=== PATIENT | male | born 1995 | race Caucasian/White ===

== ENCOUNTER 2016-11-11 09:07 | Emergency (ER) | payer BC ==
[~2016-11-11 09:07] MED LIST: MINO100C22 PO
[2016-11-11 09:13] VITALS: TEMP 37
[2016-11-11 09:26] VITALS: O2SAT 96
[2016-11-11] MEDS ORDERED: SODIUM CHLORIDE 0.9% 1000ML 1,000 ML IV STA ×2 (09:32)
--- NOTE | 2016-11-11 10:00 | EMERGENCY ROOM VISIT NOTE ---
History Report prepared by José: Deepali Victoria Under the Supervision of: Dr. Sherri Hector M.D. First contact with patient: 09:18 Chief Complaint: OVERDOSE (INTENTIONAL) Stated Complaint: OVERDOSE-VICODIN, ALCOHOL, COCAINE, XANAX History of Present Illness The patient is a 20 year old male who presents to the Emergency Room with complaints of an episode of a drug overdose occurring [employer]. Per father, the patient was found this morning by a "good worship." He was sleeping in his car on the side of the road. The patient was brought to the ED for further evaluation. He admits to using cocaine and alcohol last night. It is unclear if he also used Xanax and LSD. The patient mentioned these drugs, but his father thinks that he is just talking about previous drugs he has used and not what he was doing last night. Father states that the patient likely smoked marijuana last night as well. The patient has been taking Suboxone for the past 3 weeks since he was discharged from [facility] in [place]. Father states that the patient wanted to take the Suboxone because he wanted to have consequences for his actions. The patient states that he has not had anything to eat or drink recently and feels dehydrated. He denies any injury or trauma, but he is complaining of back pain. The history is limited due to the patient's AMS. Source of History: patient, parent (father) History Limited By: AMS Onset: TENNIS [employer]ER Position: other (global) Quality: other (overdose) Timing: other (episode) Associated Symptoms: + back pain Review of Systems See HPI for pertinent positives & negatives. A total of 10 systems reviewed and were otherwise negative. Past Medical & Surgical Medical Problems: (1) Depression (2) Polysubstance abuse Family History Diabetes mellitus FH: heart disease FH: lung disease FH: seizures FHx: gallbladder disease Hypertension Social History Smoking Status: Unknown if Ever Smoked Alcohol Use: occasionally Drug Use: cocaine, marijuana Marital Status: single Housing Status: lives with family Occupation Status: student Current/Historical Medications Scheduled Buprenorphine Hcl-Naloxone Hcl (Suboxone 8-2 Mg), 4 EA SL DAILY Allergies Coded Allergies: No Known Allergies (Unverified Allergy, Mild, 10/04/07) Physical Exam Vital Signs Date Time Temp Pulse Resp B/P (MAP) Pulse Ox O2 Delivery O2 Flow Rate FiO2 11/11/16 16:05 54 16 107/53 98 11/11/16 14:29 65 15 116/59 97 Room Air 11/11/16 13:10 51 11/11/16 13:07 56 16 119/55 96 Room Air 11/11/16 12:37 54 96 11/11/16 12:07 56 97 11/11/16 11:58 62 16 100/54 96 Room Air 11/11/16 11:58 100/54 11/11/16 11:37 61 94 11/11/16 11:07 65 95 11/11/16 10:50 123/58 11/11/16 10:50 56 14 123/58 97 Room Air 11/11/16 09:37 73 11 97 11/11/16 09:28 74 11/11/16 09:26 96 Room Air 11/11/16 09:21 133/75 11/11/16 09:13 37.0 92 20 117/65 100 Room Air Physical Exam Vital signs reviewed. General: Disheveled-appearing 20 year old male, in no significant distress. Appears to be intoxicated. HEENT: No scleral icterus, PERRLA, neck supple. Atraumatic. Cardiovascular: Regular rate and rhythm, no extra sounds. Pulmonary: Clear to auscultation bilaterally, normal work of breathing. Abdomen: Soft, nontender, nondistended, positive bowel sounds. Musculoskeletal: Atraumatic, no peripheral edema. Neurologic: Patient awake, slurring speech. Answers most questions properly but falls asleep quickly. Cranial nerves are intact. Follows commands. Skin: Warm, dry, no rash Medical Decision & Procedures ER Provider Diagnostic Interpretation: Radiology results as stated below per my review and radiologist interpretation: HEAD WITHOUT CONTRAST (CT) CT DOSE: 638.56 mGycm HISTORY: Mental status change AMS, substance abuse TECHNIQUE: Multiaxial CT images of the head were performed without the use of intravenous contrast. A dose lowering technique was utilized adhering to the principles of ALARA. Comparison: None. Findings: The paranasal sinuses and mastoid air cells are clear. The calvarium and skull base are intact. The ventricles and sulci are within normal limits. There is no mass, hematoma, midline shift, or acute infarct. Impression: No acute intracranial abnormality. The above report was generated using voice recognition software. It may contain grammatical, syntax or spelling errors. Electronically signed by: Sunil Pitt M.D. 11/11/2016 10:36 AM Dictated Date/Time: 11/11/2016 10:35 AM Laboratory Results 11/11/16 09:39 Red Blood Count 5.06, Mean Corpuscular Volume 85.4, Mean Corpuscular Hemoglobin 29.8, Mean Corpuscular Hemoglobin Concent 35.0, Mean Platelet Volume 10.0, Neutrophils (%) (Auto) 59.8, Lymphocytes (%) (Auto) 23.5, Monocytes (%) (Auto) 9.9, Eosinophils (%) (Auto) 6.0, Basophils (%) (Auto) 0.8, Neutrophils # (Auto) 3.92, Lymphocytes # (Auto) 1.54, Monocytes # (Auto) 0.65, Eosinophils # (Auto) 0.39, Basophils # (Auto) 0.05 11/11/16 09:39 Test 11/11/16 09:39 11/11/16 14:00 White Blood Count 6.55 K/uL (4.8-10.8) Red Blood Count 5.06 M/uL (4.7-6.1) Hemoglobin 15.1 g/dL (14.0-18.0) Hematocrit 43.2 % (42-52) Mean Corpuscular Volume 85.4 fL (80-100) Mean Corpuscular Hemoglobin 29.8 pg (25-34) Mean Corpuscular Hemoglobin Concent 35.0 g/dl (32-36) Platelet Count 165 K/uL (130-400) Mean Platelet Volume 10.0 fL (7.4-10.4) Neutrophils (%) (Auto) 59.8 % Lymphocytes (%) (Auto) 23.5 % Monocytes (%) (Auto) 9.9 % Eosinophils (%) (Auto) 6.0 % Basophils (%) (Auto) 0.8 % Neutrophils # (Auto) 3.92 K/uL (1.4-6.5) Lymphocytes # (Auto) 1.54 K/uL (1.2-3.4) Monocytes # (Auto) 0.65 K/uL (0.11-0.59) Eosinophils # (Auto) 0.39 K/uL (0-0.5) Basophils # (Auto) 0.05 K/uL (0-0.2) RDW Standard Deviation 40.0 fL (36.4-46.3) RDW Coefficient of Variation 12.7 % (11.5-14.5) Immature Granulocyte % (Auto) 0.0 % Immature Granulocyte # (Auto) 0.00 K/uL (0.00-0.02) Anion Gap 4.0 mmol/L (3-11) Estimated GFR () 143.0 Estimated GFR (Non- 123.4 BUN/Creatinine Ratio 13.4 (10-20) Calcium Level 8.7 mg/dl (8.5-10.1) Total Bilirubin 0.6 mg/dl (0.2-1) Direct Bilirubin 0.2 mg/dl (0-0.2) Aspartate Amino Transf (AST/SGOT) 24 U/L (15-37) Alanine Aminotransferase (ALT/SGPT) 22 U/L (12-78) Alkaline Phosphatase 64 U/L (45-117) Total Protein 6.9 gm/dl (6.4-8.2) Albumin 3.5 gm/dl (3.4-5.0) Thyroid Stimulating Hormone (TSH) 2.920 uIu/ml (0.300-4.500) Salicylates Level 2.2 mg/dl (2.8-20) Acetaminophen Level < 2 ug/ml (10-30) Ethyl Alcohol mg/dL < 3.0 mg/dl (0-3) Urine Color YELLOW Urine Appearance CLEAR (CLEAR) Urine pH 6.5 (4.5-7.5) Urine Specific [place] 1.016 (1.000-1.030) Urine Protein NEG (NEG) Urine Glucose (UA) NEG (NEG) Urine Ketones NEG (NEG) Urine Occult Blood NEG (NEG) Urine Nitrite NEG (NEG) Urine Bilirubin NEG (NEG) Urine Urobilinogen NEG (NEG) Urine Leukocyte Esterase NEG (NEG) Urine Opiates Screen NEG (NEG) Urine Methadone, Qualitative NEG (NEG) Urine Barbiturates NEG (NEG) Urine Phencyclidine (PCP) Level NEG (NEG) Ur Amphetamine/Methamphetamine NEG (NEG) MDMA (Ecstasy) Screen NEG (NEG) Urine Hydroxyalprazolam Confirm NEGATIVE NG/ML (CUTOFF=25) Urine Benzodiazepines Screen POS (NEG) 7-Amino Clonazepam Level NEGATIVE NG/ML (CUTOFF=25) Urine Nordiazepam Confirmation NEGATIVE NG/ML (CUTOFF=50) Urine Hydroxyethylflurazepam Level NEGATIVE NG/ML (CUTOFF=50) Urine Lorazepam (GC/MS) NEGATIVE NG/ML (CUTOFF=50) Urine Oxazepam Confirm (GC/MS) NEGATIVE NG/ML (CUTOFF=50) Urine Temazepam Confirmation NEGATIVE NG/ML (CUTOFF=50) Urine Hydroxytriazolam Confirmation NEGATIVE NG/ML (CUTOFF=50) Urine Hydroxymidazolam Confirmation NEGATIVE NG/ML (CUTOFF=50) Urine Cocaine Confirmation 5290 NG/ML ([id number]) Urine Cocaine Metabolite POS (NEG) Urine Marijuana (THC) POS (NEG) Urine Marijuana (THC Carboxy Acid) 84 NG/ML (CUTOFF=5) Laboratory results per my review. Medications Administered Medications (Trade) Dose Ordered Sig/Cleve Route Start Time Stop Time Status Last Admin Dose Admin Sodium Chloride 1,000 ml @ 999 mls/hr Q1H1M STAT IV 11/11/16 09:32 11/11/16 10:32 DC 11/11/16 09:56 999 MLS/HR Sodium Chloride 1,000 ml @ 200 mls/hr Q5H STAT IV 11/11/16 09:32 11/11/16 14:31 DC 11/11/16 11:35 200 MLS/HR ECG Indication: toxicologic Rate (beats per minute): 69 Rhythm: sinus with SA Findings: no acute ischemic change, no ectopy ED Course 0918: Past medical records reviewed. The patient was evaluated in room A2. A complete history and physical examination was performed. 0932: NSS 1000 ml @ 200 mls/hr IV, NSS 1000 ml @ 999 mls/hr IV 1418: I reevaluated the patient. He is more awake and alert. I discussed the results and treatment plan with the patient and his father. I answered all pertaining questions that they had. They expressed understanding and verbalized agreement. Case management will speak with the patient and his father regarding his disposition. 1532: I discussed the treatment plan with the manager case at this time. The patient will be discharged home. Medical Decision Differential diagnosis: Etiologies such as toxicologic, infection, hypoglycemia, electrolyte abnormalities, cardiac sources, intracerebral event, neurologic, as well as others were entertained. This patient was evaluated and appeared to be in no significant distress. IV access was obtained and laboratory work was drawn. The patient was placed on the nuclear monitoring technician and found to be in a normal sinus rhythm. He was hydrated with normal saline solution. He was observed on the nuclear monitoring technician. Laboratory work reveals a tox screen positive for cocaine, benzos and marijuana. Patient takes Suboxone regularly. There is no alcohol the patient' s system. He was observed until he reached a more sober state, multiple hours in the emergency department. His father is at the bedside. He declined any intervention for rehabilitation. He has been multiple times previously. Patient's father's willing to take him home. He states they will discuss things further when his mother returns home. They will return to the ER for worsening of symptoms or any medical concerns. Impression Primary Impression: Polysubstance abuse Scribe Attestation The scribe's documentation has been prepared under my direction and personally reviewed by me in its entirety. I confirm that the note above accurately reflects all work, treatment, procedures, and medical decision making performed by me. Departure Information Dispostion Home / Self-Care Referrals Tristen Cassidy M.D. (PCP) Forms HOME CARE DOCUMENTATION FORM, IMPORTANT VISIT INFORMATION, WORK / SCHOOL INSTRUCTIONS Patient Instructions [facility] Additional Instructions Diagnosis: Polysubstance abuse Please drink plenty of clear fluids. Please avoid illicit substance abuse. Consider additional rehabilitation services. Return to the emergency department for worsening of symptoms or any medical concerns.
[2016-11-11 10:02] LABS: BASO % 0.8 %; BASO ABS # 0.05 K/uL (0-0.2); COMPLETE YES; HEMATOCRIT 43.2 % (42-52); LYMPH % 23.5 %; LYMPH ABS # 1.54 K/uL (1.2-3.4); MEAN CELL VOLUME 85.4 fL (80-100); MEAN CORPUSCULAR HEMOGLOBIN 29.8 pg (25-34); MONO % 9.9 %; NEUT % 59.8 %; PLATELET COUNT 165 K/uL (130-400); RED BLOOD COUNT 5.06 M/uL (4.7-6.1); WHITE BLOOD COUNT 6.55 K/uL (4.8-10.8)
[2016-11-11 10:25] LABS: ALT/SGPT 22 U/L (12-78); BLOOD UREA NITROGEN 12 mg/dl (7-18); BUN/CREATININE RATIO 13.4 (10-20); CALCIUM 8.7 mg/dl (8.5-10.1); CARBON DIOXIDE 30 mmol/L (21-32); CHLORIDE 107 mmol/L (98-107); GLUCOSE 103 mg/dl (70-99); SODIUM 141 mmol/L (136-145)
[2016-11-11 10:34] LABS: ACETAMINOPHEN < 2 ug/ml (10-30)
[2016-11-11 10:35] LABS: ALKALINE PHOSPHATASE 64 U/L (45-117); AST/SGOT 24 U/L (15-37)
--- NOTE | 2016-11-11 10:37 | DIAGNOSTIC IMAGING REPORT ---
HEAD WITHOUT CONTRAST (CT) CT DOSE: 638.56 mGycm HISTORY: Mental status change AMS, substance abuse TECHNIQUE: Multiaxial CT images of the head were performed without the use of intravenous contrast. A dose lowering technique was utilized adhering to the principles of ALARA. Comparison: None. Findings: The paranasal sinuses and mastoid air cells are clear. The calvarium and skull base are intact. The ventricles and sulci are within normal limits. There is no mass, hematoma, midline shift, or acute infarct. Impression: No acute intracranial abnormality. The above report was generated using voice recognition software. It may contain grammatical, syntax or spelling errors. Electronically signed by: Sunil Pitt M.D. 11/11/2016 10:36 AM Dictated Date/Time: 11/11/2016 10:35 AM
[2016-11-11] MEDS ORDERED: BUPR8MIS SL (10:39)
[2016-11-11 14:14] LABS: MANUAL MICROSCOPIC REQUIRED? NO; REVIEW REQ? NO; URINE APPEARANCE CLEAR (CLEAR); URINE BILIRUBIN NEG (NEG); URINE COLOR YELLOW; URINE NITRITE NEG (NEG); URINE PH 6.5 (4.5-7.5); URINE SPECIFIC GRAVITY 1.016 (1.000-1.030); UROBILINOGEN NEG (NEG); ZZUR CULT IF INDIC CLEAN CATCH NO
[2016-11-11 14:37] LABS: BENZODIAZEPINE, URINE POS (NEG); COCAINE,URINE POS (NEG); PHENCYCLIDINE, URINE NEG (NEG)
[2016-11-11 16:05] VITALS: BP 107/53; PULSE 54; O2SAT 98
[2016-11-14 15:48] LABS: COCAINE, URINE 5290 NG/ML (CUTOFF=100); HYDROXYETHYLFLURAZEPAM CONF NEGATIVE NG/ML (CUTOFF=50); HYDROXYMIDAZOLAM NEGATIVE NG/ML (CUTOFF=50); HYDROXYTRIAZOLAM CONF NEGATIVE NG/ML (CUTOFF=50); TEMAZEPAM CONF NEGATIVE NG/ML (CUTOFF=50)
[2016-11-18 00:29] LABS: SYNTHETIC CANNABINOIDS QL URIN NEGATIVE (Negative)
== END 2016-11-11 16:07 | disposition home or self-care (01) ==
LOC: C.EDB 09:10 → C.EDA 16:07
DX: F19.10 Other psychoactive substance abuse, uncomplicated (principal); F32.9 Major depressive disorder, single episode, unspecified; Z83.3 Family history of diabetes mellitus; Z82.49 Family history of ischemic heart disease and other diseases of the circulatory system; Z82.0 Family history of epilepsy and other diseases of the nervous system; Z83.79 Family history of other diseases of the digestive system

== ENCOUNTER 2017-02-21 13:37 | Inpatient (IN) | payer BC ==
[~2017-02-21] VITALS: Ht 188 cm; Wt 92.1 kg
[~2017-02-21 13:37] MED LIST changes: +BUPR8MIS SL; -MINO100C22 PO
[2017-02-21] MEDS ORDERED: DEXAMETHASONE INJ 10 MG in SYRINGE 0 ML IV STA (14:04)
[2017-02-21] MEDS ORDERED: KETOROLAC TROMETHAMINE 30 MG/ML VIAL IV STA (14:04)
[2017-02-21 14:42] LABS: BASO % 0.9 %; BASO ABS # 0.06 K/uL (0-0.2); COMPLETE YES; EOS % 9.3 %; HEMATOCRIT 41.1 % (42-52); IG% 0.2 %; LYMPH % 25.5 %; LYMPH ABS # 1.65 K/uL (1.2-3.4); MEAN CELL VOLUME 84.2 fL (80-100); MEAN CORPUSCULAR HEMOGLOBIN 29.5 pg (25-34); MEAN PLATELET VOLUME 10.5 fL (7.4-10.4); MONO % 12.4 %; NEUT % 51.7 %; PLATELET COUNT 141 K/uL (130-400); RED BLOOD COUNT 4.88 M/uL (4.7-6.1); WHITE BLOOD COUNT 6.47 K/uL (4.8-10.8)
[2017-02-21 14:55] LABS: INR 1.1 (0.9-1.1); PARTIAL THROMBOPLASTIN RATIO 1.1; PROTHROMBIN TIME (PATIENT) 12.1 SECONDS (9.0-12.0)
--- NOTE | 2017-02-21 15:00 | DIAGNOSTIC IMAGING REPORT ---
L-SPINE MIN 4 VIEWS ROUTINE CLINICAL HISTORY: Upper lumbar back pain. COMPARISON: None FINDINGS: There is slight rightward curvature of the lumbar spine. There are 5 lumbar type vertebra. No fracture or suspicious lesion is identified on this exam. There is minimal disc space narrowing at L5-S1. There is mild multilevel endplate irregularity, including the superior endplate of L3. There is mild anterior wedging of several lower thoracic vertebral bodies which is chronic. IMPRESSION: 1. No acute lumbar spine fracture or subluxation. 2. Mild anterior wedging of several lower thoracic vertebral bodies which is chronic. 3. Multilevel endplate irregularity, including the superior endplate of L3 which is chronic and may be degenerative or developmental. Electronically signed by: Jason Ramirez M.D. 02/21/2017 2:58 PM Dictated Date/Time: 02/21/2017 2:54 PM
[2017-02-21 15:35] LABS: BUN/CREATININE RATIO 11.2 (10-20); C-REACTIVE PROTEIN 0.82 mg/dl (0-0.29); CALCIUM 8.9 mg/dl (8.5-10.1); CREATININE 0.9 mg/dl (0.60-1.40); POTASSIUM 4.1 mmol/L (3.5-5.1)
[2017-02-21] MEDS ORDERED: GADAVIST IV PRN (16:45)
--- NOTE | 2017-02-21 17:22 | DIAGNOSTIC IMAGING REPORT ---
THORACIC SPINE COMBO CLINICAL HISTORY: UPPER LUMBAR BACK PAIN COMPARISON STUDY: No previous studies for comparison. TECHNIQUE: Utilizing 1.5 Andie magnet and dedicated coil, multiplanar, multiecho imaging of the thoracic spine was performed pre and postcontrast ministration. Injection of 9 cc of Gadavist IV was uneventful. FINDINGS: Alignment of the thoracic spine is anatomic. No suspicious marrow replacement or marrow edema is present. There is anterior wedging of multiple mid to lower thoracic vertebral bodies with multilevel Schmorl's nodes. There is no intracanalicular mass or fluid collection. There is focal increased T2 signal within the lower thoracic cord at the T11-T12 level that extends for 1.3 cm. There is associated cord expansion as well as an associated 5 mm focus of cord enhancement. This represents an intramedullary abnormality. Otherwise, thoracic cord signal and caliber are normal. Central canal and neural foramen are patent. There is no acute thoracic spine fracture. There may be trace bilateral pleural effusions. This exam is moderately compromised by motion artifact. Images demonstrate apparent prominence of the extra-axial spaces of the brain which is probably artifactual. IMPRESSION: 1. Short segment focus of cord edema, enhancement and cord expansion at T11-T12 level. This finding is nonspecific and may reflect a neoplasm although the clinical presentation is atypical for a neoplastic process. Additional considerations include transverse myelitis, multiple sclerosis and spinal cord infarct. A short-term follow-up MRI of the thoracic spine is recommended given the potential for neoplasm. 2. Apparent prominence of the extra-axial CSF spaces within the brain which is suboptimally assessed on this exam. This is likely artifactual although an MRI of the brain is recommended Electronically signed by: Jason Ramirez M.D. 02/21/2017 5:21 PM Dictated Date/Time: 02/21/2017 4:57 PM
--- NOTE | 2017-02-21 17:35 | DIAGNOSTIC IMAGING REPORT ---
MRI OF THE LUMBAR SPINE WITH AND WITHOUT CONTRAST CLINICAL HISTORY: UPPER LUMBAR BACK PAIN COMPARISON STUDY: Lumbar spine radiographs February 21, 2017. TECHNIQUE: Utilizing a 1.5 Andie magnet and dedicated coil, multiplanar, multiecho imaging of the lumbar spine was performed before and after uneventful IV administration of 9 mL of Gadavist. FINDINGS: For purposes of numbering on this exam, the L5-S1 disc space is assigned to axial image 27 of 30. Alignment of the lumbar spine is anatomic. There are Schmorl's nodes at multiple levels with a lower thoracic and lumbar spine. There is marrow signal abnormality along the anterior superior endplates at multiple levels as well. Note is made of a small focus of cord edema, expansion and enhancement at the T11-T12 level. The focus of enhancement measures 5 mm. Otherwise, no additional intracanalicular abnormalities are present. Paravertebral soft tissues are unremarkable. There is a tiny central disc protrusion at L5-S1. Central canal and neural foramen are patent. IMPRESSION: 1. Small focus of cord edema, expansion and enhancement at the T11-T12 level. This finding is nonspecific and a cord neoplasm is within the differential. However, transverse myelitis, multiple sclerosis or acute focal cord infarct could appear similar. Short-term follow-up MRI is recommended given the potential for neoplasm. 2. Multilevel Schmorl's nodes with marrow signal abnormality along the endplates at multiple levels within the lower thoracic and upper lumbar spine. This finding is chronic and could reflect a developmental process such as Scheuermann disease or ankylosing spondylitis. Electronically signed by: Jason Ramirez M.D. 02/21/2017 5:34 PM Dictated Date/Time: 02/21/2017 5:21 PM
[2017-02-21] MEDS ORDERED: VANCOMYCIN 1GM/270ML NSS IV STA (18:07)
[2017-02-21] MEDS ORDERED: CEFEPIME IV 1,000 MG in DEXTROSE 5% 100ML 100 ML IV STA (18:07)
[2017-02-21] MEDS ORDERED: CEFEPIME IV 1,000 MG in SYRINGE 0 ML IV SCH (18:15)
[2017-02-21] MEDS ORDERED: NICOTINE 21 MG/24 HR TDSY ONE (19:26)
--- NOTE | 2017-02-21 19:36 | EMERGENCY ROOM VISIT NOTE ---
History First contact with patient: 13:47 Chief Complaint: BACK PAIN Stated Complaint: SEVERE LOWER BACK PAIN History of Present Illness The patient is a 21 year old male who presents to the Emergency Room with complaints of severe middle back pain. The patient reports that he has had intermittent back pain for the past month. The patient's father is also with him, and reports that he has had problems with his back for several years. He was seen by Dr. Islas at [facility] approximately 4 years ago. Imaging studies were normal, and the patient was instructed to complete physical therapy. The patient reports that this never really helped with his pain. The patient denies any prior history of back injuries. The patient does have a known history of polysubstance abuse, and does admit to prior IV drug abuse. He reports that his last IV drug use was approximately 4 months ago. The father reports that the patient spent this past summer at a rehabilitation facility in [place]. The patient denies any current fevers or chills, chest pain, abdominal pain, urinary symptoms or bowel problems. His pain is worsened with movement. He reports a burning sensation when lying on his back, and has a sharp discomfort with any twisting, flexion or extension. He rates his discomfort a 10 out of 10. He has taken ibuprofen without relief. Review of Systems HEENT: Denies dizziness, visual problems, hearing loss, tinnitus. Denies difficulty swallowing or oral lesions. PULMONARY: Denies cough, shortness of breath, sputum production or hemoptysis. CARDIOVASCULAR: Denies chest pain, palpitations, dyspnea on exertion, orthopnea or peripheral edema. GASTROINTESTINAL: Denies diarrhea, constipation, nausea, vomiting, or abdominal pain. GENITOURINARY: Denies dysuria, frequency, urgency or nocturia. NEUROLOGIC: Denies history of epilepsy, CVA, TIA or chronic headaches. MUSCULOSKELETAL: Denies history of joint tenderness/swelling. Otherwise see history of present illness. SKIN: Denies rashes or lesions. PSYCHIATRIC: Denies history of depression or mental illness. ENDOCRINE: Denies history of diabetes or thyroid disorders. Past Medical/Surgical History Medical Problems: (1) Anorexia (2) Depression (3) Polysubstance abuse Surgical Problems: (1) History of tonsillectomy and adenoidectomy (2) Status post repair of hydrocele Family History Diabetes mellitus FH: heart disease FH: lung disease FH: seizures FHx: gallbladder disease Hypertension Social History Smoking Status: Current Every Day Smoker Alcohol Use: occasionally Drug Use: cocaine, marijuana Marital Status: single Housing Status: lives with family Occupation Status: employed Current/Historical Medications Scheduled Buprenorphine Hcl-Naloxone Hcl (Suboxone 8-2 Mg), 4 EA SL DAILY Physical Exam Vital Signs Date Time Temp Pulse Resp B/P (MAP) Pulse Ox O2 Delivery O2 Flow Rate FiO2 02/21/17 18:39 96 Room Air 02/21/17 18:26 54 15 125/73 98 Room Air 02/21/17 17:03 54 17 127/69 98 Room Air 02/21/17 13:43 36.2 74 20 138/78 99 Room Air Physical Exam CONSTITUTIONAL: Healthy and well nourished. Alert and oriented X 3 with positive affect. The patient appears in moderately severe discomfort. He does not appear acutely ill or toxic. HEENT: Normocephalic, atraumatic. Pupils equal, round and reactive. No scleral icterus or conjunctival injection/pallor. NECK: Full active range of motion without discomfort. Negative Kernig's, negative Brudzinski's sign. No nuchal rigidity, JVD or carotid bruits. RESPIRATORY: Clear to auscultation bilaterally with no wheezing, crackles, rhonchi or stridor. CARDIOVASCULAR: Regular rate and rhythm with no murmurs, rubs or gallops. GASTROINTESTINAL: Bowel sounds present in all quadrants. Soft and nontender to palpation. MUSCULOSKELETAL: Patient has tenderness to palpation through the upper lumbar spine and lower thoracic centrally, specifically at T11 through L2. He has no palpable paraspinous spasms. There are no skin changes, erythema or ecchymosis on the back. Flexion, extension, lateral bending and rotation worsens his discomfort. He has no tenderness to palpation through the SI joints. Negative logroll. Negative straight leg raise. Pedal pulses are intact. INTEGUMENTARY: No rash or other significant dermatologic conditions noted. NEUROLOGIC: Lower extremities are sensory intact. Medical Decision & Procedures ER Provider Diagnostic Interpretation: My interpretation of lumbar spine x-rays shows multiple endplate deformities without any evidence for recent acute fracture. Radiologist report is as follows: L-SPINE MIN 4 VIEWS ROUTINE CLINICAL HISTORY: Upper lumbar back pain. COMPARISON: None FINDINGS: There is slight rightward curvature of the lumbar spine. There are 5 lumbar type vertebra. No fracture or suspicious lesion is identified on this exam. There is minimal disc space narrowing at L5-S1. There is mild multilevel endplate irregularity, including the superior endplate of L3. There is mild anterior wedging of several lower thoracic vertebral bodies which is chronic. IMPRESSION: 1. No acute lumbar spine fracture or subluxation. 2. Mild anterior wedging of several lower thoracic vertebral bodies which is chronic. 3. Multilevel endplate irregularity, including the superior endplate of L3 which is chronic and may be degenerative or developmental. MRI combo of the thoracic spine shows the following: THORACIC SPINE COMBO CLINICAL HISTORY: UPPER LUMBAR BACK PAIN COMPARISON STUDY: No previous studies for comparison. TECHNIQUE: Utilizing 1.5 Andie magnet and dedicated coil, multiplanar, multiecho imaging of the thoracic spine was performed pre and postcontrast ministration. Injection of 9 cc of Gadavist IV was uneventful. FINDINGS: Alignment of the thoracic spine is anatomic. No suspicious marrow replacement or marrow edema is present. There is anterior wedging of multiple mid to lower thoracic vertebral bodies with multilevel Schmorl's nodes. There is no intracanalicular mass or fluid collection. There is focal increased T2 signal within the lower thoracic cord at the T11-T12 level that extends for 1.3 cm. There is associated cord expansion as well as an associated 5 mm focus of cord enhancement. This represents an intramedullary abnormality. Otherwise, thoracic cord signal and caliber are normal. Central canal and neural foramen are patent. There is no acute thoracic spine fracture. There may be trace bilateral pleural effusions. This exam is moderately compromised by motion artifact. Images demonstrate apparent prominence of the extra-axial spaces of the brain which is probably artifactual. IMPRESSION: 1. Short segment focus of cord edema, enhancement and cord expansion at T11-T12 level. This finding is nonspecific and may reflect a neoplasm although the clinical presentation is atypical for a neoplastic process. Additional considerations include transverse myelitis, multiple sclerosis and spinal cord infarct. A short-term follow-up MRI of the thoracic spine is recommended given the potential for neoplasm. 2. Apparent prominence of the extra-axial CSF spaces within the brain which is suboptimally assessed on this exam. This is likely artifactual although an MRI of the brain is recommended MRI combo of the lumbar spine shows the following: MRI OF THE LUMBAR SPINE WITH AND WITHOUT CONTRAST CLINICAL HISTORY: UPPER LUMBAR BACK PAIN COMPARISON STUDY: Lumbar spine radiographs February 21, 2017. TECHNIQUE: Utilizing a 1.5 Andie magnet and dedicated coil, multiplanar, multiecho imaging of the lumbar spine was performed before and after uneventful IV administration of 9 mL of Gadavist. FINDINGS: For purposes of numbering on this exam, the L5-S1 disc space is assigned to axial image 27 of 30. Alignment of the lumbar spine is anatomic. There are Schmorl's nodes at multiple levels with a lower thoracic and lumbar spine. There is marrow signal abnormality along the anterior superior endplates at multiple levels as well. Note is made of a small focus of cord edema, expansion and enhancement at the T11-T12 level. The focus of enhancement measures 5 mm. Otherwise, no additional intracanalicular abnormalities are present. Paravertebral soft tissues are unremarkable. There is a tiny central disc protrusion at L5-S1. Central canal and neural foramen are patent. IMPRESSION: 1. Small focus of cord edema, expansion and enhancement at the T11-T12 level. This finding is nonspecific and a cord neoplasm is within the differential. However, transverse myelitis, multiple sclerosis or acute focal cord infarct could appear similar. Short-term follow-up MRI is recommended given the potential for neoplasm. 2. Multilevel Schmorl's nodes with marrow signal abnormality along the endplates at multiple levels within the lower thoracic and upper lumbar spine. This finding is chronic and could reflect a developmental process such as Scheuermann disease or ankylosing spondylitis. Laboratory Results 02/21/17 14:10 Red Blood Count 4.88, Mean Corpuscular Volume 84.2, Mean Corpuscular Hemoglobin 29.5, Mean Corpuscular Hemoglobin Concent 35.0, Mean Platelet Volume 10.5, Neutrophils (%) (Auto) 51.7, Lymphocytes (%) (Auto) 25.5, Monocytes (%) (Auto) 12.4, Eosinophils (%) (Auto) 9.3, Basophils (%) (Auto) 0.9, Neutrophils # (Auto ) 3.35, Lymphocytes # (Auto) 1.65, Monocytes # (Auto) 0.80, Eosinophils # (Auto ) 0.60, Basophils # (Auto) 0.06 02/21/17 14:10 Test 02/21/17 14:10 02/21/17 14:19 02/21/17 18:55 02/21/17 19:03 White Blood Count 6.47 K/uL (4.8-10.8) Red Blood Count 4.88 M/uL (4.7-6.1) Hemoglobin 14.4 g/dL (14.0-18.0) Hematocrit 41.1 % (42-52) Mean Corpuscular Volume 84.2 fL (80-100) Mean Corpuscular Hemoglobin 29.5 pg (25-34) Mean Corpuscular Hemoglobin Concent 35.0 g/dl (32-36) Platelet Count 141 K/uL (130-400) Mean Platelet Volume 10.5 fL (7.4-10.4) Neutrophils (%) (Auto) 51.7 % Lymphocytes (%) (Auto) 25.5 % Monocytes (%) (Auto) 12.4 % Eosinophils (%) (Auto) 9.3 % Basophils (%) (Auto) 0.9 % Neutrophils # (Auto) 3.35 K/uL (1.4-6.5) Lymphocytes # (Auto) 1.65 K/uL (1.2-3.4) Monocytes # (Auto) 0.80 K/uL (0.11-0.59) Eosinophils # (Auto) 0.60 K/uL (0-0.5) Basophils # (Auto) 0.06 K/uL (0-0.2) RDW Standard Deviation 38.7 fL (36.4-46.3) RDW Coefficient of Variation 12.7 % (11.5-14.5) Immature Granulocyte % (Auto) 0.2 % Immature Granulocyte # (Auto) 0.01 K/uL (0.00-0.02) Erythrocyte Sedimentation Rate 16 mm/hr (0-14) Prothrombin Time 12.1 SECONDS (9.0-12.0) Prothromb Time International Ratio 1.1 (0.9-1.1) Activated Partial Thromboplast Time 29.2 SECONDS (21.0-31.0) Partial Thromboplastin Ratio 1.1 Anion Gap 8.0 mmol/L (3-11) Est Creatinine Clear Calc Drug Dose 152.3 ml/min Estimated GFR () 142.0 Estimated GFR (Non- 122.5 BUN/Creatinine Ratio 11.2 (10-20) Calcium Level 8.9 mg/dl (8.5-10.1) Total Bilirubin 1.2 mg/dl (0.2-1) Direct Bilirubin 0.3 mg/dl (0-0.2) Aspartate Amino Transf (AST/SGOT) 27 U/L (15-37) Alanine Aminotransferase (ALT/SGPT) 24 U/L (12-78) Alkaline Phosphatase 83 U/L (45-117) Total Creatine Kinase 219 U/L (39-308) C-Reactive Protein 0.82 mg/dl (0-0.29) Total Protein 7.5 gm/dl (6.4-8.2) Albumin 4.0 gm/dl (3.4-5.0) Bedside Lactic Acid Venous 0.98 mmol/L (0.90-1.70) The above labs were reviewed. Lactate is not elevated. CBC and partial renal profile are normal. CRP and sedimentation rate are elevated, as is total and direct bilirubin without any elevated lipase, alkaline phosphatase or LFTs. Medications Administered Medications (Trade) Dose Ordered Sig/Cleve Route Start Time Stop Time Status Last Admin Dose Admin Ketorolac Tromethamine (Toradol Inj) 30 mg NOW STAT IV 02/21/17 14:04 02/21/17 14:09 DC 02/21/17 14:39 30 MG Dexamethasone Sodium Phosphate 10 mg/Syringe 2.5 ml @ 1 mls/min ONE STAT IV 02/21/17 14:04 02/21/17 14:09 DC 02/21/17 15:17 1 MLS/MIN Vancomycin HCl (Vancomycin 1gm/ 270ml Nss) 1 gm NOW STAT IV 02/21/17 18:07 02/21/17 18:09 DC 02/21/17 18:27 1 GM Cefepime HCl 1000 mg/Dextrose 111 ml @ 200 mls/hr ONE STAT IV 02/21/17 18:07 02/21/17 18:40 DC 02/21/17 18:07 200 MLS/HR ED Course Patient history and physical exam were performed. Nurse's notes were reviewed. Vital signs were reviewed and were normal. The patient is afebrile, normotensive and has normal O2 saturation on room air. The patient is not tachycardic. Review of the [place] Prescription and Drug Monitoring Program shows that the patient is currently on Suboxone. Because of concern for possible infection given prior history of IV drug abuse, I did suggest checking some labs and performing additional imaging studies of the back. Both the patient and father were in agreement. IV access was established, and labs were drawn. The patient was administered IV Toradol and Decadron. Labs were reviewed to show no leukocytosis, elevated CRP or lactate. Sedimentation rate is mildly elevated. LFTs and other electrolytes are normal. X-rays of the lumbar spine were normal except for degenerative changes as discussed in the previous Diagnostic Interpretation section. MRI studies of the thoracic and lumbar spine shows a short segment focus of cortical edema, enhancement and Court expansion at T11-T12 level, nonspecific finding that may reflect a neoplasm, although the clinical presentation is atypical for a neoplastic process. Additional considerations include transverse myelitis, multiple sclerosis and spinal cord infarct. Additional findings of the thoracic spine shows prominence of the extra-axial CSF spaces within the brain which is suboptimally assessed on current MRIs, and MRIs of the brain was recommended. The case was further discussed with Drs. Lynn and Timoteo, ED attending physicians, who suggested consultation with the local spine surgeon telecommunications clerk. I then spoke with Aron De Dios PA-C who reviewed MRI studies and indicated that the patient has no MRI findings that would warrant spine surgery intervention. He suggested consultation with a neurosurgeon, none of which we have locally. At this point, I then spoke with Dr. Kim, neurosurgeon at [facility] who also indicated the same thing after reading MRI results and discussing lab results. He also agreed that this does not warrant neurosurgery management, and suggested neurology consultation. I then spoke with Dr. Hughes , neurologist who indicated that the patient should have IV antibiotics and an LP performed, along with MRI studies of the brain and cervical spine. He offered to do this at [facility], however the patient has expressed that he does not want to travel to [facility]. At this point, I then directed my attention to Dr. Dawkins, local neurologist who requested these additional studies, especially requesting that the LP be performed before IV antibiotic treatment. He also requested hospitalist admission with consultation with him. Unfortunately, it was determined that the patient had already received his cefepime IV antibiotic push, and was already started on the IV vancomycin. The case was then further discussed with Dr. Chavez, [facility] hospitalist. In the meantime, Dr. Mahmood performed an LP puncture on the patient. Please see his dictation for this procedure, and additional labs, including a Lyme titer and CSF studies were ordered. Please see the hospitalist and neurologist dictations for further workup and final disposition. Medical Decision Patient presents with complaint of increasing pain of the central back that is now unbearable and constant. The patient does have MRI study showing an increased lower thoracic cord signal with Court expansion and cord enhancement without evidence for increasing signal or caliber. The central canal neural foramen are also patent. This is concerning for a possible neoplastic process, transverse myelitis, multiple sclerosis, spinal cord infarct and other such etiologies. Infection also cannot be ruled out at this point. It does not appear to be any hematoma or abscess on MRI, and no obvious vertebral fractures are noted. [place] Drug Monitoring Program Search Results: patient reviewed within database, see additional documentation Medication Reconcilliation Current Medication List: was personally reviewed by hi Blood Pressure Screening Patient's blood pressure: Normal blood pressure Impression Primary Impression: Thoracic spinal cord edema Additional Impressions: Acute thoracic back pain History of polysubstance abuse Departure Information Referrals Tristen Cassidy M.D. (PCP) Patient Instructions My [facility] Health Problem Qualifiers Additional Impressions: Acute thoracic back pain Back pain laterality: midline Qualified Codes: M54.6 - Pain in thoracic spine
[2017-02-21 20:01] LABS: LYME DISEASE AB IGG NEG (NEG); LYME DISEASE AB IGM NEG (NEG)
[2017-02-21] MEDS ORDERED: SODIUM CHLORIDE 0.9% 1000ML 2,000 ML IV STA (21:08)
--- NOTE | 2017-02-21 21:20 | EMERGENCY ROOM VISIT NOTE ---
ED Visit Note First contact with patient: 19:36 My participation in the care of this patient was limited to care following MRI results, which showed cord edema with broad DDX including neoplasm, transverse myelitis, multiple sclerosis or acute focal cord infarct. Broad spectrum ABX given, considering h/o IV drug use. ANNE consulted with spine who recommended NSGY eval. ANNE d/w [facility] NSGY who does not believe findings are surgical and believes local medical management is appropriate. ANNE d/w with neurology, Dr. Dawkins, who recommends LP. Bedside LP unsuccessful per procedure note below. Admitting team to pursue IR LP. ANNE d/w Dr. Chavez, [facility] hospitalist who will admit the patient for further management. --------- Lumbar Puncture Indication: back pain, cord edema on MRI, r/o infection. Verbal consent was obtained after the risks and benefits were explained, including but not limited to headache, bleeding/clotting, scarring, infection, pain, and bone/joint/nerve damage. At this time, the risks of the procedure are less than the risks of NOT performing the procedure. A time out was taken and the correct patient and site identified. The patient was placed in the seated position and the back was prepped with betadine and draped in the standard fashion. The L3 intervertebral space was identified, anesthetized locally with 1 % lidocaine without epinephrine, and the spinal needle was inserted through the skin with the bevel parallel to the dural fibers. The needle was carefully advanced but was unsuccessful after 2 attempts. A bandaid was placed and the patient was placed in the supine position. The patient tolerated the procedure well and there were no complications.
--- NOTE | 2017-02-21 21:30 | History and Physical ---
History & Physical Date & Time of Service: Feb 21, 2017 at 21:15 Chief Complaint: Severe Lower Back Pain Primary Care Physician: Tristen Cassidy M.D. History of Present Illness Source: patient, clinic records, hospital records Mrs Fuentes is a 21 year old male with history of IVDU (cocaine, heroin) who presents to the ER with severe back pain. It is mid thoracic, present for the last 2 months but getting progressively worse. He usually wakes up with pain or it wakes him up around 5am. Usually lasts for 1-2 hours. However today it has been present throughout the entire day. Pain 10/10 at worse, 7/10 at best today. He woke up crying in pain. Does not radiate. Central mid thoracic. No weakness or change in sensation in his legs. Last passed urine without any issue this morning. Last bowel movement yesterday - no loss of control. No perianal numbness noted on wiping. Feels chills while in the ER which he puts down to not having his Suboxone. He denies any fever or chills otherwise. He denies any chest pain, shortness of breath, abdominal pain, diarrhea, constipation. He reports last injecting with illicit drugs 4 months previously. He is currently taking Suboxone after going through rehab. He has had other chronic back pains on and off for many years but in different areas of his back and unlike this current episode. After being treated in the ER with Decadron his pain is now starting to improve. His thoracic/lumbar MRI showed short segment focus of cord edema ( enhancement and cord expansion at T11-T12), Apparent prominence of the extra- axial CSF spaces (suboptimally assessed on thoracic MRI) and multilevel Schmorl' s nodes. The case was discussed the the ER PA-C (please see note for full details) with Dr. Kim (neurosurgeon @ [facility] [place]) suggested neurology consultation. Dr. Hughes (neurologist @ [facility] [place]) recommended IV antibiotics, LP and MRI brain and c-spine. Patient elected to stay @ [facility] and discussed with Dr. Dawkins ([facility] neurologist) recommended LP before antibiotics however antibiotics had already been given. [facility] hospitalist group was consulted for admission. Past Medical/Surgical History Medical Problems: (1) Depression Status: Chronic (2) Polysubstance abuse Status: Chronic Family History Diabetes mellitus FH: heart disease FH: lung disease FH: seizures FHx: gallbladder disease Hypertension Social History Smoking Status: Current Every Day Smoker Smokeless Tobacco Use: No Alcohol Use: occasionally (rarely) Drug Use: cocaine, marijuana (20x/day) Marital Status: single Housing status: lives with family Occupational Status: employed Immunizations History of Influenza Vaccine: Unknown History of Tetanus Vaccine?: Unknown History of Pneumococcal: Unknown History of Hepatitis B Vaccine: Unknown Multi-Drug Resistant Organisms History of MDRO: No Allergies Coded Allergies: No Known Allergies (Unverified , 02/21/17) Home Medications Scheduled Buprenorphine Hcl-Naloxone Hcl (Suboxone 8-2 Mg), 4 EA SL DAILY Methylprednisolone (Medrol Dosepak), 1 PKT PO UD Naproxen (Naproxen), 1 TAB PO BID Review of Systems Constitutional: No fever, No chills Eyes: No worsening of vision ENT: No hearing loss Respiratory: No cough, No sputum, No shortness of breath Abdomen: No pain, No nausea, No vomiting, No diarrhea, No constipation Musculoskeletal: + joint pain, + muscle pain Genitourinary - Male: No hematuria, No dysuria, No urinary frequency, No urinary urgency Neurologic: No numbness/tingling, No vertigo Hematologic / Lymphatic: No abnormal bleeding/bruising Integumentary: No rash, No itch Physical Exam Vital Signs Date Time Temp Pulse Resp B/P (MAP) Pulse Ox O2 Delivery O2 Flow Rate FiO2 02/21/17 21:06 52 16 129/64 100 Room Air 02/21/17 19:30 54 20 107/60 99 Room Air 02/21/17 18:39 96 Room Air 02/21/17 18:26 54 15 125/73 98 Room Air 02/21/17 17:03 54 17 127/69 98 Room Air 02/21/17 13:43 36.2 74 20 138/78 99 Room Air General Appearance: WD/WN, no apparent distress Head: normocephalic, atraumatic Eyes: normal inspection, PERRL, EOMI Neck: supple, no JVD Respiratory/Chest: chest non-tender, lungs clear, normal breath sounds, no respiratory distress, no accessory muscle use Cardiovascular: regular rate, rhythm, no edema, no murmur, normal peripheral pulses Abdomen/GI: normal bowel sounds, non tender, soft Back: normal inspection, no CVA tenderness, no muscle spasm, + decreased range of motion (secondary to pain), + pertinent finding (central spinal tenderness from T11 - L2 without paraspinal tenderness) Extremities/Musculoskelatal: no calf tenderness, normal capillary refill, no pedal edema Neurologic/Psych: no motor/sensory deficits (no lower limb motor or sensation loss) Diagnostics Laboratory Results Results Past 24 Hours Test 02/21/17 14:10 02/21/17 14:19 02/21/17 19:03 Range/Units White Blood Count 6.47 4.8-10.8 K/uL Red Blood Count 4.88 4.7-6.1 M/uL Hemoglobin 14.4 14.0-18.0 g/dL Hematocrit 41.1 42-52 % Mean Corpuscular Volume 84.2 80-100 fL Mean Corpuscular Hemoglobin 29.5 25-34 pg Mean Corpuscular Hemoglobin Concent 35.0 32-36 g/dl Platelet Count 141 130-400 K/uL Mean Platelet Volume 10.5 7.4-10.4 fL Neutrophils (%) (Auto) 51.7 % Lymphocytes (%) (Auto) 25.5 % Monocytes (%) (Auto) 12.4 % Eosinophils (%) (Auto) 9.3 % Basophils (%) (Auto) 0.9 % Neutrophils # (Auto) 3.35 1.4-6.5 K/uL Lymphocytes # (Auto) 1.65 1.2-3.4 K/uL Monocytes # (Auto) 0.80 0.11-0.59 K/uL Eosinophils # (Auto) 0.60 0-0.5 K/uL Basophils # (Auto) 0.06 0-0.2 K/uL RDW Standard Deviation 38.7 36.4-46.3 fL RDW Coefficient of Variation 12.7 11.5-14.5 % Immature Granulocyte % (Auto) 0.2 % Immature Granulocyte # (Auto) 0.01 0.00-0.02 K/uL Erythrocyte Sedimentation Rate 16 0-14 mm/hr Prothrombin Time 12.1 9.0-12.0 SECONDS Prothromb Time International Ratio 1.1 0.9-1.1 Activated Partial Thromboplast Time 29.2 21.0-31.0 SECONDS Partial Thromboplastin Ratio 1.1 Sodium Level 142 136-145 mmol/L Potassium Level 4.1 3.5-5.1 mmol/L Chloride Level 105 98-107 mmol/L Carbon Dioxide Level 29 21-32 mmol/L Anion Gap 8.0 3-11 mmol/L Blood Urea Nitrogen 10 7-18 mg/dl Creatinine 0.90 0.60-1.40 mg/dl Est Creatinine Clear Calc Drug Dose 152.3 ml/min Estimated GFR () 142.0 Estimated GFR (Non- 122.5 BUN/Creatinine Ratio 11.2 10-20 Random Glucose 95 70-99 mg/dl Calcium Level 8.9 8.5-10.1 mg/dl Total Bilirubin 1.2 0.2-1 mg/dl Direct Bilirubin 0.3 0-0.2 mg/dl Aspartate Amino Transf (AST/SGOT) 27 15-37 U/L Alanine Aminotransferase (ALT/SGPT) 24 12-78 U/L Alkaline Phosphatase 83 45-117 U/L Total Creatine Kinase 219 39-308 U/L C-Reactive Protein 0.82 0-0.29 mg/dl Total Protein 7.5 6.4-8.2 gm/dl Albumin 4.0 3.4-5.0 gm/dl Lyme Disease IgG Antibody NEG NEG Lyme Disease IgM Antibody NEG NEG Bedside Lactic Acid Venous 0.98 0.90-1.70 mmol/L Microbiology Results 02/21/17 Blood Culture, Received Pending 02/21/17 Blood Culture, Received Pending 02/21/17 Cryptococcal Antigen, Ordered Pending 02/21/17 Fungal Culture, Ordered Pending 02/21/17 Gram Stain, Ordered Pending 02/21/17 CSF Culture, Ordered Pending 02/21/17 Acid Fast Stain, Chepe Batch Pending 02/21/17 Mycobacterial Culture, Chepe Batch Pending Diagnostic Radiology L-SPINE MIN 4 VIEWS ROUTINE CLINICAL HISTORY: Upper lumbar back pain. COMPARISON: None FINDINGS: There is slight rightward curvature of the lumbar spine. There are 5 lumbar type vertebra. No fracture or suspicious lesion is identified on this exam. There is minimal disc space narrowing at L5-S1. There is mild multilevel endplate irregularity, including the superior endplate of L3. There is mild anterior wedging of several lower thoracic vertebral bodies which is chronic. IMPRESSION: 1. No acute lumbar spine fracture or subluxation. 2. Mild anterior wedging of several lower thoracic vertebral bodies which is chronic. 3. Multilevel endplate irregularity, including the superior endplate of L3 which is chronic and may be degenerative or developmental. Electronically signed by: Jason Ramirez M.D. 02/21/2017 2:58 PM Dictated Date/Time: 02/21/2017 2:54 PM MRI OF THE LUMBAR SPINE WITH AND WITHOUT CONTRAST CLINICAL HISTORY: UPPER LUMBAR BACK PAIN COMPARISON STUDY: Lumbar spine radiographs February 21, 2017. TECHNIQUE: Utilizing a 1.5 Andie magnet and dedicated coil, multiplanar, multiecho imaging of the lumbar spine was performed before and after uneventful IV administration of 9 mL of Gadavist. FINDINGS: For purposes of numbering on this exam, the L5-S1 disc space is assigned to axial image 27 of 30. Alignment of the lumbar spine is anatomic. There are Schmorl's nodes at multiple levels with a lower thoracic and lumbar spine. There is marrow signal abnormality along the anterior superior endplates at multiple levels as well. Note is made of a small focus of cord edema, expansion and enhancement at the T11-T12 level. The focus of enhancement measures 5 mm. Otherwise, no additional intracanalicular abnormalities are present. Paravertebral soft tissues are unremarkable. There is a tiny central disc protrusion at L5-S1. Central canal and neural foramen are patent. IMPRESSION: 1. Small focus of cord edema, expansion and enhancement at the T11-T12 level. This finding is nonspecific and a cord neoplasm is within the differential. However, transverse myelitis, multiple sclerosis or acute focal cord infarct could appear similar. Short-term follow-up MRI is recommended given the potential for neoplasm. 2. Multilevel Schmorl's nodes with marrow signal abnormality along the endplates at multiple levels within the lower thoracic and upper lumbar spine. This finding is chronic and could reflect a developmental process such as Scheuermann disease or ankylosing spondylitis. Electronically signed by: Jason Ramirez M.D. 02/21/2017 5:34 PM Dictated Date/Time: 02/21/2017 5:21 PM THORACIC SPINE COMBO CLINICAL HISTORY: UPPER LUMBAR BACK PAIN COMPARISON STUDY: No previous studies for comparison. TECHNIQUE: Utilizing 1.5 Andie magnet and dedicated coil, multiplanar, multiecho imaging of the thoracic spine was performed pre and postcontrast ministration. Injection of 9 cc of Gadavist IV was uneventful. FINDINGS: Alignment of the thoracic spine is anatomic. No suspicious marrow replacement or marrow edema is present. There is anterior wedging of multiple mid to lower thoracic vertebral bodies with multilevel Schmorl's nodes. There is no intracanalicular mass or fluid collection. There is focal increased T2 signal within the lower thoracic cord at the T11-T12 level that extends for 1.3 cm. There is associated cord expansion as well as an associated 5 mm focus of cord enhancement. This represents an intramedullary abnormality. Otherwise, thoracic cord signal and caliber are normal. Central canal and neural foramen are patent. There is no acute thoracic spine fracture. There may be trace bilateral pleural effusions. This exam is moderately compromised by motion artifact. Images demonstrate apparent prominence of the extra-axial spaces of the brain which is probably artifactual. IMPRESSION: 1. Short segment focus of cord edema, enhancement and cord expansion at T11-T12 level. This finding is nonspecific and may reflect a neoplasm although the clinical presentation is atypical for a neoplastic process. Additional considerations include transverse myelitis, multiple sclerosis and spinal cord infarct. A short-term follow-up MRI of the thoracic spine is recommended given the potential for neoplasm. 2. Apparent prominence of the extra-axial CSF spaces within the brain which is suboptimally assessed on this exam. This is likely artifactual although an MRI of the brain is recommended Electronically signed by: Jason Ramirez M.D. 02/21/2017 5:21 PM Dictated Date/Time: 02/21/2017 4:57 PM Impression Assessment and Plan 21 year old with history of IVDU and chronic back pain admission for severe back pain Spinal cord edema/expansion T11-12 - differential includes spinal cord infarct, transverse myelitis, MS, neoplasm, meningitis - lumbar puncture pending under fluoroscopic guidance, CSF for Protein, LDH, Glucose, Culture, Fungal, AFB, Cell count diff, MS profile, Lyme, CMV, Herpes - Case with Dr Martinez IV ceftriaxone, vancomycin and acyclovir - given possibility of infection and history of IVDU will order an echo to assess for endocarditis, however no peripheral findings of this on examination and no murmur Multilevel Schmorl's nodes - differential includes Scheuermann disease or ankylosing spondylitis - ESR and CRP not convincing of , will trend Back pain - unclear etiology given non-specific findings above - continue Suboxone but not for additional opiates given Hx addiction - IV Decadron 6mg Q6H - acetaminophen and naproxen for pain Opiate addiction - Hx abuse - continue outpatient dose of Suboxone Attending addendum: I have physically seen this patient, have supervised the medical residents activities, and agree with the H&P unless as otherwise noted. Assessment and Plan: T11-12 spinal cord abnormality-- LP in the ED initially unsuccessful by emergency department personnel and then radiology, and will be reattempted again in the morning. For now, we'll cover empirically with Decadron IV, vancomycin IV, ceftriaxone IV and acyclovir IV. Nothing by mouth after midnight IV fluids for rehydration 2-D echocardiogram with Dopplers to assess for SBE Narcotic abuse history-- Continue Suboxone Acetaminophen and naproxen when necessary Level of Care Med/Surg Advanced Directives Existing Advance Directive: No Existing Living Will: No Existing Power of [employer] Manager: No Resuscitation Status FULL RESUSCITATION VTE Prophylaxis VTE Risk Assessment Done? Y/N: Yes Risk Level: Very Low Given or contraindicated: T.E.D. Stockings, SCD's, Treatment not indicated ( young age, lumbar puncture, consider if continued immobility) Additional Copies To Tristen Cassidy M.D. Resident Tracking Resident Involvement: Resident Care Provided Care Provided: Adult Hospital Medicine
[2017-02-21] MEDS ORDERED: ONDANSETRON INJ 2 MG/ML 2 ML VIAL IV PRN (21:45)
[2017-02-21] MEDS ORDERED: DEXTROSE 5% IV STA ×2 (22:25→22:32)
[2017-02-21] MEDS ORDERED: ACYCLOVIR SOD IV STA ×2 (22:25→22:32)
[2017-02-21] MEDS ORDERED: CEFTRIAXONE SOD INJ 2,000 MG in DEXTROSE 5% 50ML 50 ML IV STA (22:28)
[2017-02-21 23:03] LABS: URINE APPEARANCE CLEAR (CLEAR); URINE BILIRUBIN NEG (NEG); URINE COLOR YELLOW; URINE NITRITE NEG (NEG); URINE PH 8.5 (4.5-7.5); URINE SPECIFIC GRAVITY 1.025 (1.000-1.030); UROBILINOGEN NEG (NEG)
[2017-02-21 23:08] LABS: MANUAL MICROSCOPIC REQUIRED? NO; REVIEW REQ? NO
[2017-02-21 23:29] LABS: BENZODIAZEPINE, URINE POS (NEG); COCAINE,URINE POS (NEG); PHENCYCLIDINE, URINE NEG (NEG)
--- NOTE | 2017-02-22 00:14 | DIAGNOSTIC IMAGING REPORT ---
LUMBAR PUNCTURE DIAGNOSTIC CLINICAL HISTORY: 21 years-old Male presenting with Acute thoracic back pain with spinal cord edema. COMPARISON: Plain radiographs of the lumbar spine performed on the same day. PROCEDURE: The procedure, risks and benefits were discussed with the patient including the risk of spinal headache, bleeding and infection. The patient agreed to the procedure and informed written consent was obtained. The procedure was performed by Dr. Walker following a timeout. The L3-4 interspinous space was targeted. Skin overlying the space was prepped and draped in the usual aseptic fashion and local anesthesia was achieved with 1% lidocaine. Under intermittent fluoroscopic guidance, a 20-gauge x 3 1/2 in. Sprotte needle was inserted into the thecal sac. Appropriate positioning was confirmed with frontal and lateral projections. However, no fluid was returned. The patient was fully rotated to a left lateral decubitus position as well as the table tilted with the head elevated. Nonetheless, no fluid was obtained. The patient tolerated the procedure well. There were no immediate complications. No specimens were able to be collected. Fluoroscopy dosage (mGy): Not available. Fluoroscopy time: 0.6 minutes. Number of fluoroscopic spot images: 1. IMPRESSION: 1. Technically successful fluoroscopic guided lumbar puncture, however, no fluid was obtained despite adequate positioning confirmed with frontal and lateral fluoroscopic projections. Should the procedure be repeated during this hospitalization, adequate hydration is recommended to improved the probability of success. Electronically signed by: Mario Walker M.D. 02/22/2017 12:13 AM Dictated Date/Time: 02/22/2017 12:08 AM
[2017-02-22 00:15] VITALS: BP 115/74; PULSE 53; TEMP 36.3; O2SAT 99; Ht 188 cm; Wt 92.1 kg
[2017-02-22] MEDS ORDERED: DEXAMETHASONE INJ 6 MG in SYRINGE 0 ML IV SCH (00:30)
[2017-02-22] MEDS ORDERED: BUPRENORPHINE/NALOXONE 2/0.5MG 1 TAB PO ONE (00:30)
[2017-02-22] MEDS ORDERED: INFLUENZA VIRUS QUAD VACCINE 0.5 ML SYR IM. ONE (01:15)
[2017-02-22] MEDS ORDERED: INFLUENZA ADMINISTRATION CHARGE ONE (01:30)
[2017-02-22] MEDS: VANCOMYCIN INJ 1,250 MG in SODIUM CHLORIDE 0.9% 250ML 250 ML IV SCH ×3 (01:30→13:00)
[2017-02-22] MEDS ORDERED: VANCOMYCIN CONSULT ACTIVE PRN (03:00)
[2017-02-22] MEDS: DEXAMETHASONE INJ 6 MG in SYRINGE 0 ML IV SCH ×2 (05:55→12:00)
[2017-02-22 05:57] LABS: BASO % 0.1 %; BASO ABS # 0.01 K/uL (0-0.2); COMPLETE YES; IG% 0.3 %; LYMPH % 7.2 %; LYMPH ABS # 0.57 K/uL (1.2-3.4); MEAN CELL VOLUME 84.6 fL (80-100); MEAN CORPUSCULAR HEMOGLOBIN 29.4 pg (25-34); MEAN CORPUSCULAR HGB CONC 34.8 g/dl (32-36); MEAN PLATELET VOLUME 10.3 fL (7.4-10.4); MONO % 2.7 %; NEUT % 89.7 %; PLATELET COUNT 127 K/uL (130-400); RED BLOOD COUNT 4.73 M/uL (4.7-6.1); WHITE BLOOD COUNT 7.91 K/uL (4.8-10.8)
[2017-02-22] MEDS: SODIUM CHLORIDE 0.9% 1000ML 1,000 ML IV SCH ×2 (06:18→14:34)
[2017-02-22 06:27] LABS: ALT/SGPT 21 U/L (12-78); AST/SGOT 25 U/L (15-37); BLOOD UREA NITROGEN 8 mg/dl (7-18); BUN/CREATININE RATIO 11.1 (10-20); C-REACTIVE PROTEIN 1.21 mg/dl (0-0.29); CARBON DIOXIDE 28 mmol/L (21-32); CHLORIDE 106 mmol/L (98-107); CREATININE 0.67 mg/dl (0.60-1.40); GLUCOSE 140 mg/dl (70-99); POTASSIUM 4.6 mmol/L (3.5-5.1); SODIUM 140 mmol/L (136-145)
[2017-02-22 06:29] LABS: ALKALINE PHOSPHATASE 79 U/L (45-117)
[2017-02-22] MEDS: BUPRENORPHINE/NALOXONE 2/0.5MG 1 TAB PO SCH ×2 (07:25→21:52)
[2017-02-22 07:27] VITALS: BP 102/62; PULSE 44; TEMP 36.6; O2SAT 100
[2017-02-22] MEDS ORDERED: NICOTINE 21 MG/24 HR TDSY TD SCH (08:00)
[2017-02-22 08:20] VITALS: O2SAT 100
[2017-02-22] MEDS ORDERED: ACYCLOVIR SOD IV SCH (09:00)
[2017-02-22] MEDS ORDERED: DEXTROSE 5% IV SCH (09:00)
--- NOTE | 2017-02-22 09:03 | Neurology Consultation ---
Neurology Consultation Date of Consultation: Feb 22, 2017. Attending Physician: Fareed Chavez M.D. Primary Care Physician: Tristen Cassidy M.D. Reason for Consultation: Patient is a 21-year-old, who was asked to see the request of Dr. Ayon, for neurologic consultation regarding subacute to chronic progressive low back pain , with an abnormal MRI. History of Present Illness Source: patient, caregiver, clinic records, hospital records This patient had has a longstanding history of low back pain stemming back to childhood years. He was always overweight and by 18 was a maximum of 350 pounds. He lost considerable weight through dieting (not necessarily exercise) and now weighs around 203. He describes himself as having "all 4" eating disorders. He is anorexic, bili make, restrictive, and purges all at various times and various amounts. He continues to do this although he feels he is much better than he was in the past a year ago. Patient has had a significant drug abuse history over the last several years. He has abused IV heroin, meth, and cocaine. He claims he has not had any IV drug use for 6-8 months. He spent some time in rehab facility in [facility] early this summer. Since the summer, over the last 4 months, he occasionally snorts cocaine. His last line of cocaine was 1 time 1 week ago, which was his 1st in 6 months. He has been is Xanax abuser taking as much as 40-60 milligrams per day but over the last few months will have occasional usage anywhere from 2-10 milligrams once a week. He uses about 2-3 grams of marijuana concentrate daily. He has had withdrawal seizures from Xanax in the past but has not had a withdrawal seizure about 1 year. These episodes would occur without warning although he might feel that the "atmosphere" was changing as if he might hallucinate. He would then go into a generalized shaking spell and have no recall. He does not remember how long this would be. He is tired when he wakes up but is not sure how long about last. He has never had incontinence of urine or tongue biting. Over the last 4 months, since rehab hospital, his low back has been hurting. This has been progressively worse up until the present. It stays in his entire low back area diffusely bilaterally but may radiate up towards the shoulder blades at times. It never radiates into the lower extremities. He has no weakness in the legs, no numbness or dysesthesias in the legs, and no bowel or bladder dysfunction. He has never had any episodes like that either. He denies neck pain or upper extremity symptoms. He denies headaches, vision problems, or thinking/cognitive/memory issues. He does have fatigue. When he is still, he does not have back pain. He has back pain with any kind of movement and the more he does the worse it can be. He came to the emergency room on February 21 at 1343 hours due to severe low back pain that made him not able to get up out of bed. Blood pressure was 138/78, temperature 36.2, pulse 74 regular, respiratory rate 20 and comfortable, O2 saturation 99 percent. Examination was largely unremarkable although he had some tenderness in the low back. MRI of the lumbar spine and thoracic spine showed a small slightly enhancing hyperintense lesion around T11/T12 in the cord expanding the cord a little bit but not creating a block. No other abnormalities were seen. LP was attempted under fluoroscopy, but no fluid was obtained. Sed rate was 16 (and then 7) and C reactive protein was elevated at 1.21. Chem profile and CBC were unremarkable. Liver profile was normal as was Lyme antibody titers and urinalysis. Urine was positive for cocaine, benzodiazepines , and marijuana. This morning, he is a little bit more comfortable in bed but still has pain. Past Medical/Surgical History Medical Problems: (1) Acute thoracic back pain Status: Acute (2) Anxiety Status: Acute (3) Benzodiazepine abuse Status: Acute (4) Suicidal ideation Status: Acute Chronic progressive lumbar spine pain. Chronic IV and oral drug abuser, mostly with cocaine, marijuana, and Xanax. 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 He has also post hydrocele repair Family History Mother, age 58, has no significant medical problems that he can recall. Father, age 54, has significant osteoarthritis and possibly early diabetes. He also has depression. Social History Patient is trying to quit cigarette smoking and he has been off for several months. He has been using a inhaled concentrated nicotine vapor. He does not use alcohol. 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 He is not exposed to any toxins chemicals or glass making. Smoking Status: Former smoker Smokeless Tobacco Use: No Alcohol Use: occasionally (rarely) Drug Use: cocaine, marijuana (20x/day), other Marital Status: single Housing Status: lives with family Occupation Status: employed Allergies Coded Allergies: No Known Allergies (Unverified , 02/21/17) Current Inpatient Medications Current Inpatient Medications Medications (Trade) Dose Ordered Sig/Cleve Route Start Time Stop Time Status Last Admin Dose Admin Gadobutrol (Gadavist) 9 mmol UD PRN IV 02/21/17 16:45 02/25/17 16:44 Acetaminophen (Tylenol Tab) 650 mg Q4H PRN PO 02/21/17 21:45 03/23/17 21:44 Ondansetron HCl (Zofran Inj) 4 mg Q6H PRN IV 02/21/17 21:45 03/23/17 21:44 Buprenorphine/ Naloxone (Suboxone Tab) 2 tab BID PO 02/22/17 08:00 03/24/17 08:59 02/22/17 07:25 2 TAB Acyclovir Sodium 925 mg/Dextrose 268.5 ml @ 265 mls/hr Q8H IV 02/22/17 09:00 03/04/17 08:59 Vancomycin HCl 1250 mg/Sodium Chloride 275 ml @ 125 mls/hr Q6H IV 02/22/17 01:00 03/04/17 00:59 02/22/17 05:56 125 MLS/HR Ceftriaxone Sodium 2000 mg/ Dextrose 70 ml @ 100 mls/hr Q12H IV 02/22/17 12:00 03/04/17 11:59 Dexamethasone Sodium Phosphate 6 mg/Syringe 1.5 ml @ 1 mls/min Q6H IV 02/22/17 06:00 03/24/17 05:59 02/22/17 05:55 1 MLS/MIN Vancomycin HCl (Consult) 1 ea UD PRN N/A 02/22/17 03:00 03/24/17 02:59 Sodium Chloride 1,000 ml @ 125 mls/hr Q8H IV 02/22/17 06:15 03/24/17 06:14 02/22/17 06:18 125 MLS/HR Review of Systems Constitutional: + fatigue, No weakness Eyes: No worsening of vision, No diplopia ENT: No hearing loss, No trouble swallowing Respiratory: No cough, No shortness of breath Cardiovascular: No chest pain, No palpitations Abdomen: No pain, No nausea Musculoskeletal: + joint pain, No muscle pain Genitourinary - Male: No dysuria, No urinary incontinence Neurologic: No memory loss, No weakness, No numbness/tingling, No vertigo, No balance problems Psychiatric: No depression symptoms, No anxiety Endocrine: + fatigue Hematologic / Lymphatic: No abnormal bleeding/bruising Integumentary: No rash Allergic / Immunologic: No hives Physical Exam Vital Signs (Past 24 Hrs): Date Time Temp Pulse Resp B/P (MAP) Pulse Ox O2 Delivery O2 Flow Rate FiO2 02/22/17 08:20 100 Room Air 02/22/17 08:00 Room Air 02/22/17 07:27 36.6 44 12 102/62 (75) 100 Room Air 02/22/17 00:15 36.3 53 16 115/74 99 Room Air 02/21/17 23:04 66 16 133/88 100 02/21/17 22:20 66 16 133/88 100 Room Air 02/21/17 21:06 52 16 129/64 100 Room Air 02/21/17 19:30 54 20 107/60 99 Room Air 02/21/17 18:39 96 Room Air 02/21/17 18:26 54 15 125/73 98 Room Air 02/21/17 17:03 54 17 127/69 98 Room Air 02/21/17 13:43 36.2 74 20 138/78 99 Room Air Patient is right-handed. The patient is awake and alert. Speech is normal without aphasia or dysarthria. Mentation and thought processes are intact with orientation and normal fund of knowledge. Mood and affect are normal and appropriate. Appearance and grooming are normal. Long and short-term memory are intact. The discs are sharp with positive venous pulsations. There are no exudates, hemorrhages, or blood vessel changes seen. Pupils are 4mm bilaterally and reactive to light. Extraocular eye muscles are intact without nystagmus. Visual acuity and visual ferris seem normal grossly to confrontation. There are no deficits to sensation of the face bilaterally. Corneal reflexes are positive bilaterally. Facial strength and symmetry is normal bilaterally. Hearing seems intact grossly to voice and finger rub. Palate moves well without asymmetry. There is normal sternocleidomastoid and trapezius strength bilaterally. Tongue is midline with good strength bilaterally. Neck is with full range of motion without discomfort. There are no cervical bruits. There are no cranial or ocular bruits. Heart is without murmur. Cervical, thoracic, and lumbar spine are nontender to palpation. He does have some kyphosis in the thoracic spine with some muscle spasm to the left of the mid thoracic spine. Gait is normal. There is good arm swing, turn, stance, and balance. With outstretched arms there is no drift. There are no resting, postural, or action tremors. There is no ataxia with [id number] testing. There is good facility in the hands. There are no abnormal involuntary movements noted. Motor strength is 5/5 diffusely in the arms bilaterally including deltoids, biceps, brachioradialis, wrist flexors and extensors, slitter service and setter, and intrinsic hand muscles. Motor strength is 5/5 diffusely in the legs bilaterally including hip flexors, quadriceps, hamstring, gastrocnemius, tibialis anterior, tibialis posterior, and peroneii muscles bilaterally. Toe extensors are normal and there is good bulk in the extensor digitorum brevis muscle bilaterally. The limbs have good tone without rigidity or spasticity, and there is no atrophy noted. Muscle bulk is normal, there is no tenderness, no myotonia noted to percussion, and no fasciculations seen. Sensory examination is intact to pin and touch throughout all four limbs. Reflexes are 2/4 in the biceps, triceps, brachioradialis, quadriceps, and Achilles tendons bilaterally. He has 1 beat of clonus in the ankles bilaterally. Toes are downgoing with plantar stimulation bilaterally. Peripheral pulses are present and of normal quality distally in all four limbs. There is no peripheral edema noted. Laboratory Results Past 24 Hours: 02/22/17 05:26 Red Blood Count 4.73, Mean Corpuscular Volume 84.6, Mean Corpuscular Hemoglobin 29.4, Mean Corpuscular Hemoglobin Concent 34.8, Mean Platelet Volume 10.3, Neutrophils (%) (Auto) 89.7, Lymphocytes (%) (Auto) 7.2, Monocytes (%) (Auto) 2.7, Eosinophils (%) (Auto) 0.0, Basophils (%) (Auto) 0.1, Neutrophils # (Auto) 7.10, Lymphocytes # (Auto) 0.57, Monocytes # (Auto) 0.21, Eosinophils # (Auto) 0.00, Basophils # (Auto) 0.01 02/22/17 05:26 Test 02/21/17 14:10 02/21/17 14:19 02/21/17 19:03 02/21/17 22:30 Prothrombin Time 12.1 SECONDS (9.0-12.0) Prothromb Time International Ratio 1.1 (0.9-1.1) Activated Partial Thromboplast Time 29.2 SECONDS (21.0-31.0) Partial Thromboplastin Ratio 1.1 Direct Bilirubin 0.3 mg/dl (0-0.2) Total Creatine Kinase 219 U/L (39-308) Lyme Disease IgG Antibody NEG (NEG) Lyme Disease IgM Antibody NEG (NEG) Bedside Lactic Acid Venous 0.98 mmol/L (0.90-1.70) Urine Color YELLOW Urine Appearance CLEAR (CLEAR) Urine pH 8.5 (4.5-7.5) Urine Specific [place] 1.025 (1.000-1.030) Urine Protein NEG (NEG) Urine Glucose (UA) NEG (NEG) Urine Ketones 1+ (NEG) Urine Occult Blood NEG (NEG) Urine Nitrite NEG (NEG) Urine Bilirubin NEG (NEG) Urine Urobilinogen NEG (NEG) Urine Leukocyte Esterase NEG (NEG) Urine Opiates Screen NEG (NEG) Urine Methadone, Qualitative NEG (NEG) Urine Barbiturates NEG (NEG) Urine Phencyclidine (PCP) Level NEG (NEG) Ur Amphetamine/Methamphetamine NEG (NEG) MDMA (Ecstasy) Screen NEG (NEG) Urine Benzodiazepines Screen POS (NEG) Urine Cocaine Metabolite POS (NEG) Urine Marijuana (THC) POS (NEG) Test 02/21/17 22:34 02/22/17 05:26 White Blood Count 7.91 K/uL (4.8-10.8) Red Blood Count 4.73 M/uL (4.7-6.1) Hemoglobin 13.9 g/dL (14.0-18.0) Hematocrit 40.0 % (42-52) Mean Corpuscular Volume 84.6 fL (80-100) Mean Corpuscular Hemoglobin 29.4 pg (25-34) Mean Corpuscular Hemoglobin Concent 34.8 g/dl (32-36) Platelet Count 127 K/uL (130-400) Mean Platelet Volume 10.3 fL (7.4-10.4) Neutrophils (%) (Auto) 89.7 % Lymphocytes (%) (Auto) 7.2 % Monocytes (%) (Auto) 2.7 % Eosinophils (%) (Auto) 0.0 % Basophils (%) (Auto) 0.1 % Neutrophils # (Auto) 7.10 K/uL (1.4-6.5) Lymphocytes # (Auto) 0.57 K/uL (1.2-3.4) Monocytes # (Auto) 0.21 K/uL (0.11-0.59) Eosinophils # (Auto) 0.00 K/uL (0-0.5) Basophils # (Auto) 0.01 K/uL (0-0.2) RDW Standard Deviation 38.6 fL (36.4-46.3) RDW Coefficient of Variation 12.6 % (11.5-14.5) Immature Granulocyte % (Auto) 0.3 % Immature Granulocyte # (Auto) 0.02 K/uL (0.00-0.02) Erythrocyte Sedimentation Rate 7 mm/hr (0-14) Anion Gap 7.0 mmol/L (3-11) Est Creatinine Clear Calc Drug Dose 204.6 ml/min Estimated GFR () > 150.0 Estimated GFR (Non- 138.3 BUN/Creatinine Ratio 11.1 (10-20) Calcium Level 9.0 mg/dl (8.5-10.1) Total Bilirubin 0.8 mg/dl (0.2-1) Aspartate Amino Transf (AST/SGOT) 25 U/L (15-37) Alanine Aminotransferase (ALT/SGPT) 21 U/L (12-78) Alkaline Phosphatase 79 U/L (45-117) C-Reactive Protein 1.21 mg/dl (0-0.29) Total Protein 7.2 gm/dl (6.4-8.2) Albumin 3.6 gm/dl (3.4-5.0) Globulin 3.6 gm/dl (2.5-4.0) Albumin/Globulin Ratio 1.0 (0.9-2) Imaging MRI OF THE LUMBAR SPINE WITH AND WITHOUT CONTRAST CLINICAL HISTORY: UPPER LUMBAR BACK PAIN COMPARISON STUDY: Lumbar spine radiographs February 21, 2017. TECHNIQUE: Utilizing a 1.5 Andie magnet and dedicated coil, multiplanar, multiecho imaging of the lumbar spine was performed before and after uneventful IV administration of 9 mL of Gadavist. FINDINGS: For purposes of numbering on this exam, the L5-S1 disc space is assigned to axial image 27 of 30. Alignment of the lumbar spine is anatomic. There are Schmorl's nodes at multiple levels with a lower thoracic and lumbar spine. There is marrow signal abnormality along the anterior superior endplates at multiple levels as well. Note is made of a small focus of cord edema, expansion and enhancement at the T11-T12 level. The focus of enhancement measures 5 mm. Otherwise, no additional intracanalicular abnormalities are present. Paravertebral soft tissues are unremarkable. There is a tiny central disc protrusion at L5-S1. Central canal and neural foramen are patent. IMPRESSION: 1. Small focus of cord edema, expansion and enhancement at the T11-T12 level. This finding is nonspecific and a cord neoplasm is within the differential. However, transverse myelitis, multiple sclerosis or acute focal cord infarct could appear similar. Short-term follow-up MRI is recommended given the potential for neoplasm. 2. Multilevel Schmorl's nodes with marrow signal abnormality along the endplates at multiple levels within the lower thoracic and upper lumbar spine. This finding is chronic and could reflect a developmental process such as Scheuermann disease or ankylosing spondylitis. Electronically signed by: Jason Ramirez M.D. 02/21/2017 5:34 PM Dictated Date/Time: 02/21/2017 5:21 PM THORACIC SPINE COMBO CLINICAL HISTORY: UPPER LUMBAR BACK PAIN COMPARISON STUDY: No previous studies for comparison. TECHNIQUE: Utilizing 1.5 Andie magnet and dedicated coil, multiplanar, multiecho imaging of the thoracic spine was performed pre and postcontrast ministration. Injection of 9 cc of Gadavist IV was uneventful. FINDINGS: Alignment of the thoracic spine is anatomic. No suspicious marrow replacement or marrow edema is present. There is anterior wedging of multiple mid to lower thoracic vertebral bodies with multilevel Schmorl's nodes. There is no intracanalicular mass or fluid collection. There is focal increased T2 signal within the lower thoracic cord at the T11-T12 level that extends for 1.3 cm. There is associated cord expansion as well as an associated 5 mm focus of cord enhancement. This represents an intramedullary abnormality. Otherwise, thoracic cord signal and caliber are normal. Central canal and neural foramen are patent. There is no acute thoracic spine fracture. There may be trace bilateral pleural effusions. This exam is moderately compromised by motion artifact. Images demonstrate apparent prominence of the extra-axial spaces of the brain which is probably artifactual. IMPRESSION: 1. Short segment focus of cord edema, enhancement and cord expansion at T11-T12 level. This finding is nonspecific and may reflect a neoplasm although the clinical presentation is atypical for a neoplastic process. Additional considerations include transverse myelitis, multiple sclerosis and spinal cord infarct. A short-term follow-up MRI of the thoracic spine is recommended given the potential for neoplasm. 2. Apparent prominence of the extra-axial CSF spaces within the brain which is suboptimally assessed on this exam. This is likely artifactual although an MRI of the brain is recommended Electronically signed by: Jason Ramirez M.D. 02/21/2017 5:21 PM Impression 1. Subacute progressive lower thoracic/lumbar back pain of uncertain etiology. On the surface, clinically, this back pain seems very mechanical with pain on movement and less pain or no pain with rest. Clinically, he has some mid thoracic 6 muscle spasm and kyphosis but no sensory level, weakness, numbness or any other neurologic focal deficit related to his spine. He has no bowel or bladder dysfunction. There are no meningeal signs or encephalopathy either. 2. Lower thoracic cord lesion, which does not correlate to any neurologic signs or symptoms on exam. He does have the T11/T12 small hyper intense lesion seen on MRI inside the cord with some mild cord swelling but no block. It is slightly enhances. This is very nonspecific and might be a long-standing, chronic lesion. His history of subacute to chronic progressive pain is consistent with progressive expansile lesion such as a tumor, or the pain has nothing to do with this lesion and he just has mechanical back pain. Alternatively, he could represent a in the usual night is of infection (he is an IV drug abuser by history) but I doubt this represents any kind of acute infection as it does not fit with the clinical course. Chronic inflammatory lesion is possible but again, his history does not fit an acute transverse myelitis or acute MS exacerbation. 3. Chronic oral and IV drug abuser, somewhat improved recently but still using substances inappropriately. 4. History of significant weight loss from severe obesity with known eating disorders. 5. Suspect underlying psychiatric disease such as depression or bipolar disorder (or other). He is not being treated for any psychiatric disorder currently. 6. History of withdrawal type seizures associated with Xanax. He is stable and has had no spells for 1 year. Plan 1. MRI of the brain with and without contrast 2. MRI of the cervical spine with and without contrast 3. We need to obtain CSF for analysis for infection or inflammation. Contact Radiology to redo the procedure. 4. TSH, B12, folate 5. Physical therapy for his low back. 6. Treat low back pain with anti-inflammatory agent such as ketorolac 7. Consider psychiatric evaluation. 8. Caution with drug withdrawal and possible withdrawal seizures. I have spent 90 total minutes with this case including evaluation and discussion with the patient of differential diagnosis and treatment options at bedside, discussion with Dr. Mandel, and review of records.
--- NOTE | 2017-02-22 09:30 | ECHOCARDIOGRAM REPORT ---
*NOTICE TO RECEIVING LIBERTARIAN AGENCY This information is strictly Confidential and protected under [place] law. [place] law prohibits you from making any further disclosure of this information unless further disclosure is expressly permitted by the written consent of the person to whom it pertains or is authorized by law. A general authorization for the release of medical or other information is not sufficient for this purpose. Hospital accepts no responsibility if the information is made available to any other person, INCLUDING THE PATIENT. Interpretation Summary * Name: CARINA GOODMAN Study Date: 02/22/2017 07:33 AM BP: 115/74 mmHg * Patient Location: .4E\S\E400\S\1 HR: 53 * : 1995 (M/d/yyyy) Gender: Male Height: 74 in * Age: 21 yrs Ethnicity: CA Weight: 202 lb * Ordering Physician: Kiran Ayon * Referring Physician: Self, Referred * Performed By: Annel Cardenas RDCS * * Reason For Study: ENDOCARDITIS * BSA: 2.2 m2 * There is no evidence of a mass or vegetation. This does not rule out endocarditis. * -- Conclusions -- * Left ventricular systolic function is normal. * Right ventricular systolic pressure is normal. Procedure Details * A complete two-dimensional transthoracic echocardiogram was performed (2D, M-mode, Doppler and color flow Doppler). Left Ventricle * The left ventricle is normal in size. * There is normal left ventricular wall thickness. * Ejection Fraction = 60-65%. * Left ventricular systolic function is normal. * Normal diastolic function * The left ventricular wall motion is normal. Right Ventricle * The right ventricle is normal in size and function. * The right ventricular systolic function is normal as assessed by tricuspid annular plane systolic excursion (TAPSE) (normal >1.5 cm). Atria * The left atrial size is normal. * Right atrial size is normal. Mitral Valve * The mitral valve anatomy is normal. * Significant mitral regurgitation is absent. Tricuspid Valve * The tricuspid valve anatomy is normal. * There is trace tricuspid regurgitation. * Right ventricular systolic pressure is normal. Aortic Valve * The aortic valve is normal in structure and function. * The aortic valve is trileaflet. * No hemodynamically significant valvular aortic stenosis. * There is no significant aortic regurgitation. Pulmonic Valve * The pulmonic valve is not well seen, but is grossly normal. Great Vessels * The aortic root is normal size. Pericardium/Pleural * There is no pericardial effusion. Great Vessels * Normal inferior vena cava diameter and respiratory variation suggests normal central venous pressure. MMode 2D Measurements and Calculations IVSd 0.71 cm IVSs 1.4 cm LVIDd 5.1 cm LVIDs 3.3 cm LVPWd 0.90 cm LVPWs 1.5 cm IVS/LVPW 0.79 FS 34.6 % EDV(Teich) 123.8 ml ESV(Teich) 45.3 ml EF(Teich) 63.4 % EDV(cubed) 132.6 ml ESV(cubed) 37.1 ml EF(cubed) 72.0 % % IVS thick 99.3 % % LVPW thick 62.0 % LV mass(C)d 141.8 grams LV mass(C)dI 65.0 grams/m\S\2 LV mass(C)s 169.3 grams LV mass(C)sI 77.6 grams/m\S\2 SV(Teich) 78.5 ml SI(Teich) 36.0 ml/m\S\2 SV(cubed) 95.5 ml SI(cubed) 43.7 ml/m\S\2 Ao root diam 3.0 cm Ao root area 7.2 cm\S\2 LA dimension 3.8 cm LA/Ao 1.2 EDV(MOD-sp4) 118.0 ml ESV(MOD-sp4) 45.0 ml EF(MOD-sp4) 61.9 % EDV(MOD-sp2) 135.0 ml ESV(MOD-sp2) 50.0 ml EF(MOD-sp2) 63.0 % SV(MOD-sp4) 73.0 ml SI(MOD-sp4) 33.5 ml/m\S\2 SV(MOD-sp2) 85.0 ml SI(MOD-sp2) 38.9 ml/m\S\2 Doppler Measurements and Calculations MV E max roberta 105.0 cm/sec MV A max roberta 55.2 cm/sec MV E/A 1.9 MV dec time 0.32 sec Ao V2 max 130.1 cm/sec Ao max PG 6.8 mmHg Ao max PG (full) 3.2 mmHg LV V1 max PG 3.6 mmHg LV V1 max 95.2 cm/sec TR max roberta 200.7 cm/sec
[2017-02-22] MEDS ORDERED: CEFTRIAXONE SOD INJ 2,000 MG in DEXTROSE 5% 50ML 50 ML IV SCH (12:00)
[2017-02-22] MEDS ORDERED: NURSING VERBAL MED ORDER ONE (14:45)
[2017-02-22 14:53] VITALS: BP 108/58; PULSE 51; TEMP 36.9; O2SAT 98
[2017-02-22 15:02] VITALS: O2SAT 98
[2017-02-22] MEDS: ACETAMINOPHEN 325 MG TAB PO PRN ×2 (15:11→21:30)
--- NOTE | 2017-02-22 18:07 | Family Medicine Progress Note ---
Progress Note Date of Service Feb 22, 2017. Subjective Pt evaluation today including: conversation w/ patient, conversation w/ family , physical exam, chart review, conversation w/ golf tournament consultant, review of inpatient medication list Pain: none currently PO Intake: good Voiding: no voiding problems Patient currently without any back pain When spoken to in privacy patient elucidated to the fact that he has been taking xanax in order to help with the back pain. He says it is worst in the mornings and rates it as a 11/10. Gets better throughout the day. He says that his Aunts have Rheumatoid Arthritis, scleroderma and Giant Cell Arthritis. His father had back surgery at a young age as well as surgery of his cervical spine due to osteoarthritis. Constitutional: + sweats, No fever, No chills, No weight loss Eyes: No worsening of vision, No eye pain Respiratory: No cough, No shortness of breath Cardiovascular: No chest pain, No palpitations Abdomen: No pain, No nausea, No vomiting, No diarrhea, No constipation Musculoskeletal: + joint pain, + muscle pain, No swelling Male : No dysuria, No urinary frequency Neurologic: No paralysis, No weakness, No numbness/tingling, No balance problems Psychiatric: + substance abuse Medications Current Inpatient Medications Medications (Trade) Dose Ordered Sig/Cleve Route Start Time Stop Time Status Last Admin Dose Admin Gadobutrol (Gadavist) 9 mmol UD PRN IV 02/21/17 16:45 02/25/17 16:44 Acetaminophen (Tylenol Tab) 650 mg Q4H PRN PO 02/21/17 21:45 03/23/17 21:44 02/22/17 15:11 650 MG Ondansetron HCl (Zofran Inj) 4 mg Q6H PRN IV 02/21/17 21:45 03/23/17 21:44 Buprenorphine/ Naloxone (Suboxone Tab) 2 tab BID PO 02/22/17 08:00 03/24/17 08:59 02/22/17 07:25 2 TAB Acyclovir Sodium 925 mg/Dextrose 268.5 ml @ 265 mls/hr Q8H IV 02/22/17 09:00 03/04/17 08:59 Future Hold Vancomycin HCl 1250 mg/Sodium Chloride 275 ml @ 125 mls/hr Q6H IV 02/22/17 01:00 03/04/17 00:59 Future Hold 02/22/17 05:56 125 MLS/HR Ceftriaxone Sodium 2000 mg/ Dextrose 70 ml @ 100 mls/hr Q12H IV 02/22/17 12:00 03/04/17 11:59 Future Hold Dexamethasone Sodium Phosphate 6 mg/Syringe 1.5 ml @ 1 mls/min Q6H IV 02/22/17 06:00 03/24/17 05:59 Future Hold 02/22/17 05:55 1 MLS/MIN Vancomycin HCl (Consult) 1 ea UD PRN N/A 02/22/17 03:00 03/24/17 02:59 Future Hold Sodium Chloride 1,000 ml @ 125 mls/hr Q8H IV 02/22/17 06:15 03/24/17 06:14 02/22/17 14:34 125 MLS/HR Objective Vital Signs Date Time Temp Pulse Resp B/P (MAP) Pulse Ox O2 Delivery O2 Flow Rate FiO2 02/22/17 15:02 98 Room Air 02/22/17 14:53 36.9 51 14 108/58 (75) 98 Room Air 02/22/17 08:20 100 Room Air 02/22/17 08:00 Room Air 02/22/17 07:27 36.6 44 12 102/62 (75) 100 Room Air 02/22/17 00:15 36.3 53 16 115/74 99 Room Air 02/21/17 23:04 66 16 133/88 100 02/21/17 22:20 66 16 133/88 100 Room Air 02/21/17 21:06 52 16 129/64 100 Room Air 02/21/17 19:30 54 20 107/60 99 Room Air 02/21/17 18:39 96 Room Air 02/21/17 18:26 54 15 125/73 98 Room Air Physical Exam General Appearance: WD/WN, no apparent distress ENT: pharynx normal Neck: no adenopathy, no JVD, no carotid bruits, trachea midline Respiratory/Chest: lungs clear, no respiratory distress, no accessory muscle use Cardiovascular: regular rate, rhythm, no JVD, no murmur Abdomen: normal bowel sounds, non tender, soft Extremities: normal range of motion, non-tender, no pedal edema, no calf tenderness, normal capillary refill, + pertinent finding (back without any spinal or paraspinal tenderness) Neurologic/Psychiatric: no motor/sensory deficits, alert, normal mood/affect, oriented x 3 Laboratory Results Results Past 24 Hours Test 02/21/17 19:03 02/21/17 22:30 02/21/17 22:34 02/22/17 05:26 Range/Units Urine Color YELLOW Urine Appearance CLEAR CLEAR Urine pH 8.5 4.5-7.5 Urine Specific [place] 1.025 1.000-1.030 Urine Protein NEG NEG Urine Glucose (UA) NEG NEG Urine Ketones 1+ NEG Urine Occult Blood NEG NEG Urine Nitrite NEG NEG Urine Bilirubin NEG NEG Urine Urobilinogen NEG NEG Urine Leukocyte Esterase NEG NEG Urine Opiates Screen NEG NEG Urine Methadone, Qualitative NEG NEG Urine Barbiturates NEG NEG Urine Phencyclidine (PCP) Level NEG NEG Ur Amphetamine/Methamphetamine NEG NEG MDMA (Ecstasy) Screen NEG NEG Urine Benzodiazepines Screen POS NEG Urine Cocaine Metabolite POS NEG Urine Marijuana (THC) POS NEG White Blood Count 7.91 4.8-10.8 K/uL Red Blood Count 4.73 4.7-6.1 M/uL Hemoglobin 13.9 14.0-18.0 g/dL Hematocrit 40.0 42-52 % Mean Corpuscular Volume 84.6 80-100 fL Mean Corpuscular Hemoglobin 29.4 25-34 pg Mean Corpuscular Hemoglobin Concent 34.8 32-36 g/dl Platelet Count 127 130-400 K/uL Mean Platelet Volume 10.3 7.4-10.4 fL Neutrophils (%) (Auto) 89.7 % Lymphocytes (%) (Auto) 7.2 % Monocytes (%) (Auto) 2.7 % Eosinophils (%) (Auto) 0.0 % Basophils (%) (Auto) 0.1 % Neutrophils # (Auto) 7.10 1.4-6.5 K/uL Lymphocytes # (Auto) 0.57 1.2-3.4 K/uL Monocytes # (Auto) 0.21 0.11-0.59 K/uL Eosinophils # (Auto) 0.00 0-0.5 K/uL Basophils # (Auto) 0.01 0-0.2 K/uL RDW Standard Deviation 38.6 36.4-46.3 fL RDW Coefficient of Variation 12.6 11.5-14.5 % Immature Granulocyte % (Auto) 0.3 % Immature Granulocyte # (Auto) 0.02 0.00-0.02 K/uL Erythrocyte Sedimentation Rate 7 0-14 mm/hr Sodium Level 140 136-145 mmol/L Potassium Level 4.6 3.5-5.1 mmol/L Chloride Level 106 98-107 mmol/L Carbon Dioxide Level 28 21-32 mmol/L Anion Gap 7.0 3-11 mmol/L Blood Urea Nitrogen 8 7-18 mg/dl Creatinine 0.67 0.60-1.40 mg/dl Est Creatinine Clear Calc Drug Dose 204.6 ml/min Estimated GFR () > 150.0 Estimated GFR (Non- 138.3 BUN/Creatinine Ratio 11.1 10-20 Random Glucose 140 70-99 mg/dl Calcium Level 9.0 8.5-10.1 mg/dl Total Bilirubin 0.8 0.2-1 mg/dl Aspartate Amino Transf (AST/SGOT) 25 15-37 U/L Alanine Aminotransferase (ALT/SGPT) 21 12-78 U/L Alkaline Phosphatase 79 45-117 U/L C-Reactive Protein 1.21 0-0.29 mg/dl Total Protein 7.2 6.4-8.2 gm/dl Albumin 3.6 3.4-5.0 gm/dl Globulin 3.6 2.5-4.0 gm/dl Albumin/Globulin Ratio 1.0 0.9-2 Test 02/22/17 16:32 Range/Units Rheumatoid Factor < 10.0 0-15 U/mL Microbiology Results 02/21/17 Cryptococcal Antigen, Ordered Pending 02/21/17 Fungal Culture, Ordered Pending 02/21/17 Gram Stain, Ordered Pending 02/21/17 CSF Culture, Ordered Pending 02/21/17 Acid Fast Stain, Chepe Batch Pending 02/21/17 Mycobacterial Culture, Chepe Batch Pending Assessment and Plan 21 year old male with history of polysubstance abuse (heroine, meth, opiates and marijuana) who is currently on suboxone after going to rehab has presented to the hospital with severe mid thoracic back pain that he has rated as a 11/ 10. Lumbar spine MRI has shown spinal cod edema/expansion at T11-12 Back pain Unrelated lower thoracic cord lesion on MRI pain is worst in the mornings 11/10 and is associated with sweats overnight Lumbar spine MRI: showed Multilevel Schmorl's nodes concerning for Scheuermann disease vs Ank Spond and Small focus of cord edema, expansion and enhancement at the T11-T12 level which could be consistent with transverse myelitis, MS or acute focal cord infarct Lumbar spine XRAY: showed mild anterior wedging of several lower thoracic vertebral bodies and multilevel endplate irregularities Differential includes the following: Ankylosing Spondylitis (multilevel schmorl's nodes, dad with hx of back surgery at early age) - order HLA B27 Rheumatoid arthritis (aunt has RA, patient with mildly elevated ESR of 16) - RF ordered MSK pain - patient describes pain to be paraspinal at times, however pain improves with walking and throughout the day Transverse myelitis - patient without viral or bacterial infection symptoms and without any motor or sensory deficits MS - patient without any abnormal neurological findings - MRI brain and MRI cervical spine going to be ordered Meningitis - unlikely considering patient without neck stiffness, photophobia or fever Malignancy- possible, however on ROS there is no evidence of primary Early abscess - patient afebrile and without wcc therefore unlikely, echo without any vegetations Will treat with naproxen 375mg bid and monitor for improvement Neurology consulted and plan to do LP tomorrow - Antibiotics, antivirals and steroid on hold currently Will continue maintenance IVF as patient was dehydrated on initial LP contributing to being unable to get fluid on first attempt in ED Substance abuse (heroin, meth, marijuana, xanax) Patient on suboxone daily Recently in rehab Has been taking xanax recently to help with his back pain May benefit from setting up psych referral on discharge DVT Prophylaxis- patient ambulating Code- Full Continued [facility] stay due to: other Discharge planning: uncertain Reviewed: Pt Seen/Exam by Me History complains of 11/10 back pain. parents at bedside no numbness/tingling in legs Constitutional: denies: fever Respiratory: negative: short of breath Cardiovascular: denies chest pain General Appearance: no apparent distress (walking the hallway without any worsening pain) Respiratory: lungs clear, no respiratory distress Cardiovascular: regular rate, rhythm Neurologic/Psychiatric: no motor/sensory deficits, alert, oriented x 3 Skin Characteristics: warm/dry Assessment/Plan Resident Physician Supervision Note: I independently interviewed and examined the patient and verified the hancock history and physical, reviewed labs and image studies, discussed the case with the resident Dr. Chao and agree with the findings and care plan.
[2017-02-22] MEDS ORDERED: VANCOMYCIN TROUGH ONE (18:30)
[2017-02-22] MEDS ORDERED: GADAVIST IV PRN (21:00)
[2017-02-22] MEDS: NAPROXEN 375 MG TAB PO SCH (21:41)
[2017-02-22 23:47] VITALS: BP 114/69; PULSE 49; TEMP 36.4; O2SAT 100
--- NOTE | 2017-02-22 23:56 | DIAGNOSTIC IMAGING REPORT ---
BRAIN COMBO HISTORY: 21 years-old Male spinal cord lesion cord edema and expansion at T11-T12 seen on comparison lumbar spine study. COMPARISON: Lumbar spine MR 02/21/2017, CT head 11/11/2016 TECHNIQUE: Multiplanar multisequence MRI of the brain was obtained both with and without the use of 9 mL Gadavist FINDINGS: There is no restricted diffusion to suggest acute ischemia. Midline structures including the corpus callosum, brainstem, optic chiasm, pituitary and pineal gland are unremarkable in the sagittal T1 sequence. No cerebellar tonsillar herniation. There is a nonspecific 1.3 cm structure of the subcutaneous parietal scalp in the vertex demonstrating low T2 and intermediate T1 signal, likely benign. There is no acute intracranial hemorrhage, midline shift, abnormal extra-axial collections, hydrocephalus or intracranial mass. No significant parenchymal signal of the malleus. Major flow voids at the level skull base are patent. The bilateral mesial temporal lobes appear unremarkable. No seizure focus identified. No cortical dysplasia. There is no abnormal intra-axial or extra-axial enhancement. Mastoid air cells and middle ear cavities are clear. Mild mucoperiosteal thickening of the right maxillary and bilateral ethmoid sinuses and left frontal sinus. IMPRESSION: 1. No acute intracranial abnormality. 2. No abnormal intra-axial or extra-axial enhancement. 3. Mild paranasal sinus disease. The above report was generated using voice recognition software. It may contain grammatical, syntax or spelling errors. Electronically signed by: Rupert Allen M.D. 02/22/2017 11:54 PM Dictated Date/Time: 02/22/2017 11:49 PM
[2017-02-23] VITALS (7 sets, daily range): BP systolic 101–150; BP diastolic 58–78; PULSE 43–56; TEMP 36.6–37.1; O2SAT 94–100
--- NOTE | 2017-02-23 00:01 | DIAGNOSTIC IMAGING REPORT ---
CERVICAL WITHOUT CONTRAST HISTORY: 21 years-old Male spinal cord lesion enhancing lesion of the spinal cord from comparison study COMPARISON: Lumbar spine MR 02/21/2017 TECHNIQUE: Multiplanar multisequence MRI the cervical spine was obtained without contrast. FINDINGS: No focal bone marrow edema, acute fracture or subluxation. Signal within the cord is within normal limits without focal lesion identified. The axial T2 images are nondiagnostic and the axial T1 images are extremely motion degraded. Mild uncovertebral spurring is noted at C4-C5, C5-C6 and C6-C7. Broad-based posterior disc bulge is seen at C5-C6 without high-grade central canal or foraminal narrowing on the sagittal images. IMPRESSION: 1. Very limited study secondary to motion artifact. The axial T2 images are nondiagnostic. 2. Within the limitations of the study, there is no focal signal abnormalities of the spinal cord identified. 3. Mild uncovertebral spurring at C4-C5 through C6-C7 with broad-based posterior disc bulge at C5-C6. No definite high-grade central canal or foraminal narrowing identified on the sagittal images alone. The above report was generated using voice recognition software. It may contain grammatical, syntax or spelling errors. Electronically signed by: Rupert Allen M.D. 02/23/2017 12:00 AM Dictated Date/Time: 02/22/2017 11:55 PM
[2017-02-23] MEDS: SODIUM CHLORIDE 0.9% 1000ML 1,000 ML IV SCH ×2 (03:19→06:08)
[2017-02-23 04:50] LABS: BASO % 0.1 %; BASO ABS # 0.01 K/uL (0-0.2); COMPLETE YES; EOS % 0.1 %; HEMATOCRIT 36.3 % (42-52); IG% 0.2 %; LYMPH % 18.6 %; LYMPH ABS # 1.67 K/uL (1.2-3.4); MEAN CELL VOLUME 84.6 fL (80-100); MEAN CORPUSCULAR HEMOGLOBIN 29.4 pg (25-34); MEAN CORPUSCULAR HGB CONC 34.7 g/dl (32-36); MEAN PLATELET VOLUME 9.8 fL (7.4-10.4); MONO % 9.6 %; NEUT % 71.4 %; PLATELET COUNT 113 K/uL (130-400); RED BLOOD COUNT 4.29 M/uL (4.7-6.1)
[2017-02-23 05:10] LABS: ALT/SGPT 21 U/L (12-78); AST/SGOT 18 U/L (15-37); BLOOD UREA NITROGEN 11 mg/dl (7-18); BUN/CREATININE RATIO 16.4 (10-20); CALCIUM 8.1 mg/dl (8.5-10.1); CARBON DIOXIDE 25 mmol/L (21-32); CHLORIDE 112 mmol/L (98-107); CREATININE 0.65 mg/dl (0.60-1.40); GLUCOSE 109 mg/dl (70-99); POTASSIUM 4.3 mmol/L (3.5-5.1); SODIUM 143 mmol/L (136-145)
[2017-02-23 05:13] LABS: ALB/GLOB RATIO 1.1 (0.9-2); ALKALINE PHOSPHATASE 62 U/L (45-117)
[2017-02-23] MEDS: ACETAMINOPHEN 325 MG TAB PO PRN ×2 (08:30→12:29)
[2017-02-23] MEDS: NAPROXEN 375 MG TAB PO SCH (08:30)
[2017-02-23] MEDS: BUPRENORPHINE/NALOXONE 2/0.5MG 1 TAB PO SCH (08:33)
--- NOTE | 2017-02-23 08:39 | Neurology Progress Notes ---
Neurology Progress Note Date of Service Feb 23, 2017. Subjective Patient continues to have low back pain. This is positional and is worse sleeping on his back as opposed to his side. He does not have pain that radiates into his legs and has no other new symptomatology overnight. Nursing reports no new problems. MRI of the brain showed no acute or chronic abnormalities. There were no white matter lesions or other abnormalities. The MRI of the cervical spine showed no intra spinal cord lesions. There was some diffuse degenerative changes of disc in bone in the mid cervical area creating some relative spinal stenosis. I reviewed the MRI reports with the patient Objective Date Time Temp Pulse Resp B/P (MAP) Pulse Ox O2 Delivery O2 Flow Rate FiO2 02/23/17 08:03 36.6 56 20 150/78 (102) 94 Room Air 02/23/17 08:02 36.6 43 18 101/58 (72) 100 Room Air 02/23/17 07:57 37.1 45 20 105/62 (76) 100 02/23/17 01:26 Room Air 02/22/17 23:47 36.4 49 20 114/69 (84) 100 Room Air 02/22/17 16:00 Room Air 02/22/17 15:02 98 Room Air 02/22/17 14:53 36.9 51 14 108/58 (75) 98 Room Air Last 24 Hours Test 02/22/17 16:32 02/23/17 04:37 02/23/17 08:00 Rheumatoid Factor < 10.0 U/mL White Blood Count 9.00 K/uL Red Blood Count 4.29 M/uL Hemoglobin 12.6 g/dL Hematocrit 36.3 % Mean Corpuscular Volume 84.6 fL Mean Corpuscular Hemoglobin 29.4 pg Mean Corpuscular Hemoglobin Concent 34.7 g/dl Platelet Count 113 K/uL Mean Platelet Volume 9.8 fL Neutrophils (%) (Auto) 71.4 % Lymphocytes (%) (Auto) 18.6 % Monocytes (%) (Auto) 9.6 % Eosinophils (%) (Auto) 0.1 % Basophils (%) (Auto) 0.1 % Neutrophils # (Auto) 6.43 K/uL Lymphocytes # (Auto) 1.67 K/uL Monocytes # (Auto) 0.86 K/uL Eosinophils # (Auto) 0.01 K/uL Basophils # (Auto) 0.01 K/uL RDW Standard Deviation 39.7 fL RDW Coefficient of Variation 13.1 % Immature Granulocyte % (Auto) 0.2 % Immature Granulocyte # (Auto) 0.02 K/uL Erythrocyte Sedimentation Rate 2 mm/hr Sodium Level 143 mmol/L Potassium Level 4.3 mmol/L Chloride Level 112 mmol/L Carbon Dioxide Level 25 mmol/L Anion Gap 6.0 mmol/L Blood Urea Nitrogen 11 mg/dl Creatinine 0.65 mg/dl Est Creatinine Clear Calc Drug Dose 210.8 ml/min Estimated GFR () > 150.0 Estimated GFR (Non- 140.1 BUN/Creatinine Ratio 16.4 Random Glucose 109 mg/dl Calcium Level 8.1 mg/dl Total Bilirubin 0.8 mg/dl Aspartate Amino Transf (AST/SGOT) 18 U/L Alanine Aminotransferase (ALT/SGPT) 21 U/L Alkaline Phosphatase 62 U/L Total Protein 6.2 gm/dl Albumin 3.3 gm/dl Globulin 2.9 gm/dl Albumin/Globulin Ratio 1.1 Imaging: CERVICAL WITHOUT CONTRAST HISTORY: 21 years-old Male spinal cord lesion enhancing lesion of the spinal cord from comparison study COMPARISON: Lumbar spine MR 02/21/2017 TECHNIQUE: Multiplanar multisequence MRI the cervical spine was obtained without contrast. FINDINGS: No focal bone marrow edema, acute fracture or subluxation. Signal within the cord is within normal limits without focal lesion identified. The axial T2 images are nondiagnostic and the axial T1 images are extremely motion degraded. Mild uncovertebral spurring is noted at C4-C5, C5-C6 and C6-C7. Broad-based posterior disc bulge is seen at C5-C6 without high-grade central canal or foraminal narrowing on the sagittal images. IMPRESSION: 1. Very limited study secondary to motion artifact. The axial T2 images are nondiagnostic. 2. Within the limitations of the study, there is no focal signal abnormalities of the spinal cord identified. 3. Mild uncovertebral spurring at C4-C5 through C6-C7 with broad-based posterior disc bulge at C5-C6. No definite high-grade central canal or foraminal narrowing identified on the sagittal images alone. The above report was generated using voice recognition software. It may contain grammatical, syntax or spelling errors. Electronically signed by: Rupert Allen M.D. 02/23/2017 12:00 AM [~ rep ct add3]] BRAIN COMBO HISTORY: 21 years-old Male spinal cord lesion cord edema and expansion at T11-T12 seen on comparison lumbar spine study. COMPARISON: Lumbar spine MR 02/21/2017, CT head 11/11/2016 TECHNIQUE: Multiplanar multisequence MRI of the brain was obtained both with and without the use of 9 mL Gadavist FINDINGS: There is no restricted diffusion to suggest acute ischemia. Midline structures including the corpus callosum, brainstem, optic chiasm, pituitary and pineal gland are unremarkable in the sagittal T1 sequence. No cerebellar tonsillar herniation. There is a nonspecific 1.3 cm structure of the subcutaneous parietal scalp in the vertex demonstrating low T2 and intermediate T1 signal, likely benign. There is no acute intracranial hemorrhage, midline shift, abnormal extra-axial collections, hydrocephalus or intracranial mass. No significant parenchymal signal of the malleus. Major flow voids at the level skull base are patent. The bilateral mesial temporal lobes appear unremarkable. No seizure focus identified. No cortical dysplasia. There is no abnormal intra-axial or extra-axial enhancement. Mastoid air cells and middle ear cavities are clear. Mild mucoperiosteal thickening of the right maxillary and bilateral ethmoid sinuses and left frontal sinus. IMPRESSION: 1. No acute intracranial abnormality. 2. No abnormal intra-axial or extra-axial enhancement. 3. Mild paranasal sinus disease. The above report was generated using voice recognition software. It may contain grammatical, syntax or spelling errors. Electronically signed by: Rupert Allen M.D. 02/22/2017 11:54 PM Exam: Patient is sleepy but easily arousable with voice. Speech and mentation seem normal. He is moving his limbs symmetrically and has no abnormal involuntary movements. Current Inpatient Medications Medications (Trade) Dose Ordered Sig/Cleve Route Start Time Stop Time Status Last Admin Dose Admin Gadobutrol (Gadavist) 9 mmol UD PRN IV 02/21/17 16:45 02/25/17 16:44 Acetaminophen (Tylenol Tab) 650 mg Q4H PRN PO 02/21/17 21:45 03/23/17 21:44 02/22/17 21:30 650 MG Ondansetron HCl (Zofran Inj) 4 mg Q6H PRN IV 02/21/17 21:45 03/23/17 21:44 Buprenorphine/ Naloxone (Suboxone Tab) 2 tab BID PO 02/22/17 08:00 03/24/17 08:59 02/22/17 21:52 2 TAB Acyclovir Sodium 925 mg/Dextrose 268.5 ml @ 265 mls/hr Q8H IV 02/22/17 09:00 03/04/17 08:59 Future Hold Vancomycin HCl 1250 mg/Sodium Chloride 275 ml @ 125 mls/hr Q6H IV 02/22/17 01:00 03/04/17 00:59 Future Hold 02/22/17 05:56 125 MLS/HR Ceftriaxone Sodium 2000 mg/ Dextrose 70 ml @ 100 mls/hr Q12H IV 02/22/17 12:00 03/04/17 11:59 Future Hold Dexamethasone Sodium Phosphate 6 mg/Syringe 1.5 ml @ 1 mls/min Q6H IV 02/22/17 06:00 03/24/17 05:59 Future Hold 02/22/17 05:55 1 MLS/MIN Vancomycin HCl (Consult) 1 ea UD PRN N/A 02/22/17 03:00 03/24/17 02:59 Future Hold Sodium Chloride 1,000 ml @ 125 mls/hr Q8H IV 02/22/17 06:15 03/24/17 06:14 02/23/17 06:08 125 MLS/HR Naproxen (Naprosyn Tab) 375 mg BID PO 02/22/17 20:00 03/24/17 19:59 02/22/17 21:41 375 MG Gadobutrol (Gadavist) 9 mmol UD PRN IV 02/22/17 21:00 02/26/17 20:59 Impression 1. Subacute progressive lower thoracic/lumbar back pain of uncertain etiology. Clinically, this back pain seems very mechanical, with pain on movement and less pain or no pain with rest, or other positions. Clinically, he has some mid thoracic muscle spasm and kyphosis but no sensory level, weakness, numbness, or any other neurologic focal deficit related to his spine. He has no bowel or bladder dysfunction. There are no meningeal signs or encephalopathy either. 2. Lower thoracic cord lesion, which does not correlate to any neurologic signs or symptoms on exam. He does have the T11/T12 small hyper intense lesion seen on MRI inside the cord with some mild cord swelling but no block. It is slightly enhances. This is very nonspecific, likely long-standing/chronic, and may have nothing to do with his back pain. A very slow growing tumor cannot be excluded. Reactive gliosis from chronic cord compression from disc is possible as well. Given his IV and oral drug abuse history, a chronic infectious process cannot entirely be excluded but he has no signs of infection otherwise. Chronic inflammatory lesion is possible but again, his history does not fit an acute transverse myelitis or acute MS exacerbation, and imaging studies show no other signs of inflammation. 3. Chronic oral and IV drug abuser, somewhat improved recently, but still using/ abusing substances inappropriately. 4. History of significant weight loss from severe obesity with known eating disorders. 5. Suspect underlying psychiatric disease such as depression or bipolar disorder (or other). He is not being treated for any psychiatric disorder currently. 6. History of withdrawal type seizures associated with Xanax. He is stable and has had no spells for 1 year. Plan 1. Obtain CSF for analysis for infection or inflammation. I have spoken with the radiologist to perform this study this morning. 2. Other inflammatory laboratory studies have been ordered and are pending. 3. Physical therapy for his low back. 4. Treat low back pain with anti-inflammatory agent such as ketorolac, or give a tapering prednisone course , starting after the lumbar puncture. 5. Consider psychiatric evaluation. 6. Caution with drug withdrawal and possible withdrawal seizures. 7. MRI of the lumbar spine should be repeated somewhere between 6-12 weeks for comparison. Altogether, I have spent 60 minutes with this case including discussion and review of the films with the radiologist this morning, discussion of the case with Dr. Mandel including differential diagnosis and treatment options, discussion with nursing in, reviewing records, and at the bedside.
[2017-02-23] MEDS ORDERED: KETOROLAC TROMETHAMINE 10 MG TAB PO PRN (08:45)
[2017-02-23 11:25] LABS: CSF TOTAL PROTEIN 41.1 mg/dl (15.0-45.0)
[2017-02-23 11:32] LABS: CSF APPEARANCE CLEAR; CSF COLOR COLORLESS; CSF XANTHOCHROMIC XANTHOCHROMIC
--- NOTE | 2017-02-23 11:49 | DIAGNOSTIC IMAGING REPORT ---
FLUOROSCOPIC GUIDED LUMBAR PUNCTURE CLINICAL HISTORY: Spinal lesion. PROCEDURE: The risks, benefits, and alternatives to the procedure is discussed with the patient who voiced understanding. Written informed consent was obtained. The patient was placed prone on the fluoroscopy table. The lower back was prepped and draped in the usual sterile fashion. 1% lidocaine was used for local anesthesia. A 22-gauge spinal needle was inserted into the L3-L4 interlaminar space, and approximately 10 cc of clear colorless cerebrospinal fluid was removed. The patient tolerated the procedure well. There were no immediate complications. The patient was then returned to the medical unit for further observation. Fluoroscopy time: 0.5 minutes. IMPRESSION: Fluoroscopic guided lumbar puncture with removal of approximately 10 cc of cerebrospinal fluid. There were no immediate complications. Electronically signed by: Scotty Viera M.D. 02/23/2017 11:48 AM Dictated Date/Time: 02/23/2017 11:47 AM
[2017-02-23] MEDS ORDERED: LIDODERM (LIDOCAINE) PATCH 5% TD SCH (12:00)
[2017-02-23] MEDS ORDERED: NURSING VERBAL MED ORDER ONE (12:00)
[2017-02-23] MEDS ORDERED: NICOTINE 21 MG/24 HR TDSY EXT SCH (12:30)
[2017-02-23] MEDS ORDERED: NICOTINE 21 MG/24 HR TDSY TD SCH (12:30)
[2017-02-23] MEDS ORDERED: METH4PAK PO (14:07)
[2017-02-23] MEDS ORDERED: NAPR500T3 PO (14:07)
--- NOTE | 2017-02-23 14:20 | Discharge Instructions ---
Discharge Instructions Date of Service Feb 23, 2017. Admission Reason for Admission: Acute Thoracic Back Pain, Edema Of Spinal Cord, Discharge Discharge Diagnosis / Problem: Back pain Discharge Goals Goal(s): Decrease discomfort, Diagnostic testing, Prevent Disease Progression Activity Recommendations Activity Limitations: per Instructions/Follow-up section . Instructions / Follow-Up Instructions / Follow-Up You came to the hospital due to intractable back pain We ordered lab work that was unremarkable. We did a lumbar puncture that was unremarkable. We have a few other labs pending (ANNETTE, HLA B27). You will need to follow up with Dr. Dawkins and Dr. Chao for these results The results of your imaging studies were as follows: MRI brain = normal MRI Lumbar/Thoracic spine= There is a tiny central disc protrusion at L5-S1/ small focus of cord edema, expansion and enhancement at the T11-T12 level MRI Cervical spine= Mild uncovertebral spurring at C4-C5 through C6-C7 with broad-based posterior disc bulge at C5-C6 Lumbar XRAY= Mild anterior wedging of several lower thoracic vertebral bodies which is chronic We will be sending you home with a prescription for steroids for 6 days as well as naproxen for the next 10 days. Please take these as prescribed. You will also need to follow up with a physical therapist regularly. Please follow up with Dr. Sanches, Dr. Chao and Dr. Dawkins for further management of your back pain. Dr Dawkins will be getting you to get another MRI of your spine in 6-8 weeks. Try to exercise regularly by either walking, biking or swimming to help release pressure from your back. If you have worsening back, fever >100.4, bowel incontinence, bladder incontinence, leg weakness or perianal numbness then please come back to the emergency department Current Hospital Diet Patient's current hospital diet: Regular Diet Discharge Diet Recommended Diet: Regular Diet Pending Studies Studies pending at discharge: yes List of pending studies: HLA B27 ANNETTE CMV EBV HSV Medical Emergencies . Who to Call and When: Medical Emergencies: If at any time you feel your situation is an emergency, please call 911 immediately. . Non-Emergent Contact Non-Emergency issues call your: Primary Care Provider, Neurologist . . "Provider Documentation" section prepared by Antione Chao. . VTE Core Measure Inpt VTE Proph given/why not?: T.E.D. Stockings, SCD's, Treatment not indicated (eliana age, lumbar puncture, consider if continued immobility)
--- NOTE | 2017-02-23 14:40 | Discharge Summary ---
Discharge Summary Date of Service Feb 23, 2017. (Antione Chao MD) Discharge Summary Admission Date: Feb 21, 2017 at 21:47 Discharge Date: Feb 23, 2017 Discharge Disposition: Home Principal Diagnosis: Subacute progressive lower thoracic/lumbar back pain of uncertain etiology Immunizations: Have You Had Influenza Vaccine: Unknown History of Tetanus Vaccine?: Unknown History of Pneumococcal: Unknown History of Hepatitis B Vaccine: Unknown Procedures: Lumbar puncture Consultations: Neurology (Antione Chao MD) Medication Reconciliation New Medications: Methylprednisolone (Medrol Dosepak) 4 Mg Edward 1 PKT PO UD for 6 Days, #1 PKT Naproxen (Naproxen) 500 Mg Tab 1 TAB PO BID for 30 Days, #60 TAB 1 Refill Continued Medications: Buprenorphine Hcl-Naloxone Hcl (Suboxone 8-2 Mg) 1 Mis Mis 4 EA SL DAILY HALF OF AN 8MG FILMSTRIP Discharge Exam Patient still with lower back pain, mildly improved since yesterday denies any fevers, chills or sweats Review of Systems: Constitutional: No fever, No chills, No sweats Respiratory: No cough, No sputum, No shortness of breath, No dyspnea on exertion Cardiovascular: No chest pain, No edema, No claudication, No palpitations Abdomen: No pain, No nausea, No vomiting, No diarrhea, No constipation Musculoskeletal: + joint pain, + muscle pain, No swelling Genitourinary - Male: No dysuria Neurologic: No paralysis, No weakness, No numbness/tingling, No balance problems Integumentary: No rash, No itch Physical Exam: General Appearance: + mild distress Eyes: PERRL, EOMI ENT: hearing grossly normal, pharynx normal Neck: supple, no JVD, no carotid bruits Respiratory/Chest: lungs clear, no respiratory distress, no accessory muscle use Cardiovascular: regular rate, rhythm, no murmur, normal peripheral pulses Abdomen / GI: normal bowel sounds, non tender, soft Extremities: normal inspection, no calf tenderness, no pedal edema, normal range of motion, + pertinent finding (pain to palptation of L5 spinous process with associated pain to palpation along lumbar paraspinal muscles) 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, no motor/sensory deficits , alert, normal mood/affect, oriented x 3 (Antione Chao MD) continues to complain of back pain Review of Systems: Constitutional: No fever Respiratory: No shortness of breath Cardiovascular: No chest pain Abdomen: No pain Physical Exam: General Appearance: no apparent distress Respiratory/Chest: lungs clear, no respiratory distress Cardiovascular: regular rate, rhythm Abdomen / GI: soft Neurologic/Psychiatric: no motor/sensory deficits, alert, oriented x 3 Skin: warm/dry (Daphne Mandel M.D.) Hospital Course 21 year old male with history of polysubstance abuse (heroine, meth, opiates and marijuana) who is currently on suboxone after going to rehab has presented to the hospital with severe mid thoracic back pain that he has rated as a 11/10 Back pain Unrelated lower thoracic cord lesion on MRI MRI brain = normal MRI Lumbar/Thoracic spine= There is a tiny central disc protrusion at L5-S1/ small focus of cord edema, expansion and enhancement at the T11-T12 level, showed Multilevel Schmorl's nodes concerning for Scheurmanns disease vs Ank Spond MRI Cervical spine= Mild uncovertebral spurring at C4-C5 through C6-C7 with broad-based posterior disc bulge at C5-C6 Lumbar XRAY= Mild anterior wedging of several lower thoracic vertebral bodies which is chronic Differential includes the following: Ankylosing Spondylitis (multilevel schmorl's nodes, dad with hx of back surgery at early age) - order HLA B27 Rheumatoid arthritis (aunt has RA, patient with mildly elevated ESR of 16) - RF ordered and negative, ANNETTE pending at discharge Disc herniation and MSK pain - small disc bulge L5-S1, very likely to be causing pain as well as paraspinal muscular pain Transverse myelitis - patient without viral or bacterial infection symptoms and without any motor or sensory deficits MS - patient without any abnormal neurological findings - MRI brain without any lesions Meningitis - unlikely considering patient without neck stiffness, photophobia or fever - LP normal in hospital Malignancy- unlikely yet possible, however on ROS there is no evidence of primary Early abscess - patient afebrile and without wcc therefore unlikely, echo without any vegetations We will be sending patient home with a prescription for steroids for 6 days as well as naproxen for the next 10 days Patient given a prescription for physical therapy and encouraged to exercise regularly Will follow up with Dr. Dawkins and will get repeat imaging in 6-8 weeks. Will follow up with Dr. Sanches and will get appointment with pain specialist for possible need for steroid injections Will follow up with Dr. Chao for coordination of care and primary care services Substance abuse (heroin, meth, marijuana, xanax) Patient on suboxone daily Recently in rehab Has been taking xanax recently to help with his back pain Total Time Spent: Less than 30 minutes This includes examination of the patient, discharge planning, medication reconciliation, and communication with other providers. (Antione Chao MD) Resident Physician Supervision Note: I independently interviewed and examined the patient and verified the hancock history and physical, reviewed labs and image studies, discussed the case with the resident Dr. Chao and agree with the findings and care plan. Pain disproportionate to any physical sign. Home on steroid taper. Unrelated Lower thoracic cord lesion on MRI - to be followed by neurology f/u with PCP and neurology as outpatient. Total Time Spent: Greater than 30 minutes (35) (Daphne Mandel M.D.) Discharge Instructions Please refer to the electronic Patient Visit Report (Discharge Instructions) for additional information. (Antione Chao MD) Additional Copies To Tristen Cassidy M.D.; Antione Chao MD; Ramon Dawkins M.D.
[2017-02-24 13:35] LABS: COCAINE, URINE 185 NG/ML (CUTOFF=100); HYDROXYETHYLFLURAZEPAM CONF NEGATIVE NG/ML (CUTOFF=50); HYDROXYMIDAZOLAM NEGATIVE NG/ML (CUTOFF=50); HYDROXYTRIAZOLAM CONF NEGATIVE NG/ML (CUTOFF=50); TEMAZEPAM CONF NEGATIVE NG/ML (CUTOFF=50)
[2017-02-28 19:27] LABS: ALBUMIN 3.5 g/dL (3.7-5.1); CMV DNA PCR QUANT SOURCE CSF; CMV DNA QN REAL TIME PCR <200 IU/mL (<200); EBV DNA QUANT PCR <200 copies/mL (<200); EBV DNA QUANT SOURCE CSF; HSV TYPE 1 DNA Not Detected (Not Detected); HSV TYPE 1&2 DNA SOURCE CSF; HSV TYPE 2 DNA Not Detected (Not Detected); IGG CSF 1.8 mg/dL (0.8-7.7); IGG SERUM 681 mg/dL (694-1618); LYME DNA PCR CSF OR SYNOVIAL Not detected (Not Detected); LYME DNA SOURCE CSF; MYELIN BASIC PROTEIN 663 <2.0 mcg/L (0.0-4.0)
== END 2017-02-23 15:18 | disposition home or self-care (01) | DRG 92 ==
LOC: C.EDB 13:39 → C.4E 21:47 → ENRESERV 21:57 → C.4E 02-22 12:03
PROVIDERS: ADMIT Hospitalist; ATTEND Family Medicine
PROC: 009U3ZX Drainage of Spinal Canal, Percutaneous Approach, Diagnostic (ICD-10-PCS; principal; 2017-02-21)
DX: G95.19 Other vascular myelopathies (principal); F11.20 Opioid dependence, uncomplicated; F50.01 Anorexia nervosa, restricting type; G95.9 Disease of spinal cord, unspecified; M54.6 Pain in thoracic spine; M62.830 Muscle spasm of back; M54.5 Low back pain; M51.46 Schmorl's nodes, lumbar region; M51.44 Schmorl's nodes, thoracic region; F14.10 Cocaine abuse, uncomplicated; F15.10 Other stimulant abuse, uncomplicated; F13.10 Sedative, hypnotic or anxiolytic abuse, uncomplicated; F12.10 Cannabis abuse, uncomplicated; F17.290 Nicotine dependence, other tobacco product, uncomplicated; Z79.1 Long term (current) use of non-steroidal anti-inflammatories (NSAID); Z79.52 Long term (current) use of systemic steroids; Z82.61 Family history of arthritis

== ENCOUNTER 2017-02-28 10:48 | Observation (INO) | payer BC ==
[~2017-02-28] VITALS: Ht 188 cm; Wt 94.0 kg
[~2017-02-28 10:48] MED LIST changes: +METH4PAK PO; +NAPR500T3 PO
--- NOTE | 2017-02-28 11:10 | EMERGENCY ROOM VISIT NOTE ---
History First contact with patient: 10:55 Chief Complaint: OVERDOSE (INTENTIONAL) Stated Complaint: OVERDOSE History of Present Illness The patient is a 21 year old male who presents to the Emergency Room via private vehicle with complaints of "overdose". The patient states that he has chronic back pain, and is addicted to Xanax. He states that he one point was using 30 bars of Xanax per week, and now he is using between 5-9. He states that he had a half bar Xanax today, as well as 5, 2 mg bars of another medication made by [employer]. He states that he at this time has no thoughts to harm himself or other people. He states that he walked here because he wanted to hang out. He denies any fevers, chills, chest pain or shortness of breath. He also had prednisone today. He denies any other symptoms. He would like to go home. Review of Systems A complete 10-point Review of Systems was discussed with the patient, with pertinent positives and negatives listed in the History of Present Illness. All remaining Review of Systems questions can be considered negative unless otherwise specified. Past Medical/Surgical History Medical Problems: (1) Anorexia (2) Benzodiazepine overdose (3) Depression (4) Polysubstance abuse Surgical Problems: (1) History of tonsillectomy and adenoidectomy (2) Status post repair of hydrocele Family History Diabetes mellitus FH: heart disease FH: lung disease FH: seizures FHx: gallbladder disease Hypertension Social History Smoking Status: Unknown if Ever Smoked Alcohol Use: occasionally Drug Use: cocaine, marijuana, other Marital Status: single Housing Status: lives with family Occupation Status: employed Current/Historical Medications Scheduled Buprenorphine Hcl-Naloxone Hcl (Suboxone 8-2 Mg), 4 EA SL BID Methylprednisolone (Medrol Dosepak), 1 PKT PO UD Naproxen (Naproxen), 1 TAB PO BID Physical Exam Vital Signs Date Time Temp Pulse Resp B/P (MAP) Pulse Ox O2 Delivery O2 Flow Rate FiO2 02/28/17 22:46 56 106/60 98 Room Air 02/28/17 21:28 59 99/63 98 Room Air 02/28/17 20:40 67 120/54 97 Room Air 02/28/17 20:38 63 02/28/17 20:12 65 116/57 97 Room Air 02/28/17 19:50 65 14 94/41 99 Room Air 02/28/17 13:16 89 18 123/61 100 Room Air 02/28/17 10:50 36.5 92 15 114/71 99 Room Air Physical Exam VITAL SIGNS - Vital signs and nursing notes were reviewed. Stable. GENERAL -21-year-old male appearing his stated age who is in no acute distress. He is slightly slow to respond but otherwise acting appropriate. Communicates well with provider and answers questions appropriately. SKIN - Without rashes. HEAD - NC/AT. EYES - PERRL with EOMI bilaterally. Sclera anicteric. EARS - No deformities of external structures noted on gross examination bilaterally. No pain elicited with palpation of the tragus bilaterally. External auditory canals without discharge or otorrhea. Tympanic membranes pearly reyes without retraction or bulging. No fluid or purulent material visualized behind the TM. Handle of malleus, umbo, cone of light, pars tensa/ flaccid all easily visualized. NOSE - Midline and without cyanosis. No epistaxis or purulent drainage noted. MOUTH/OROPHARYNX - Without perioral cyanosis. NECK - Neck with FROM. Supple to palpation. No nuchal rigidity. LUNGS - Chest wall symmetric without accessory muscle use, intercostals retractions, or central cyanosis. Normal vesicular breath sounds CTA B/L. No wheezes, rales, or rhonchi appreciated. CARDIAC - RRR with S1/S2. No murmur, rubs, or gallops appreciated. EXTREMITIES - No clubbing or peripheral cyanosis. +5/5 strength noted in UE/LE bilaterally. NEUROLOGIC - Cranial nerves II through XII grossly intact. Sensory intact to light touch throughout. PSYCH - A&Ox3 and cooperates fully with examiner. Pt is very pleasant and interacts well with examiner. Medical Decision & Procedures Laboratory Results 02/28/17 11:19 Red Blood Count 4.68, Mean Corpuscular Volume 85.3, Mean Corpuscular Hemoglobin 29.3, Mean Corpuscular Hemoglobin Concent 34.3, Mean Platelet Volume 10.2, Neutrophils (%) (Auto) 67.8, Lymphocytes (%) (Auto) 18.4, Monocytes (%) (Auto) 10.5, Eosinophils (%) (Auto) 2.8, Basophils (%) (Auto) 0.4, Neutrophils # (Auto ) 9.53, Lymphocytes # (Auto) 2.58, Monocytes # (Auto) 1.47, Eosinophils # (Auto ) 0.39, Basophils # (Auto) 0.05 02/28/17 11:19 Test 02/28/17 11:19 02/28/17 12:26 02/28/17 17:43 White Blood Count 14.04 K/uL (4.8-10.8) Red Blood Count 4.68 M/uL (4.7-6.1) Hemoglobin 13.7 g/dL (14.0-18.0) Hematocrit 39.9 % (42-52) Mean Corpuscular Volume 85.3 fL (80-100) Mean Corpuscular Hemoglobin 29.3 pg (25-34) Mean Corpuscular Hemoglobin Concent 34.3 g/dl (32-36) Platelet Count 162 K/uL (130-400) Mean Platelet Volume 10.2 fL (7.4-10.4) Neutrophils (%) (Auto) 67.8 % Lymphocytes (%) (Auto) 18.4 % Monocytes (%) (Auto) 10.5 % Eosinophils (%) (Auto) 2.8 % Basophils (%) (Auto) 0.4 % Neutrophils # (Auto) 9.53 K/uL (1.4-6.5) Lymphocytes # (Auto) 2.58 K/uL (1.2-3.4) Monocytes # (Auto) 1.47 K/uL (0.11-0.59) Eosinophils # (Auto) 0.39 K/uL (0-0.5) Basophils # (Auto) 0.05 K/uL (0-0.2) RDW Standard Deviation 41.0 fL (36.4-46.3) RDW Coefficient of Variation 13.3 % (11.5-14.5) Immature Granulocyte % (Auto) 0.1 % Immature Granulocyte # (Auto) 0.02 K/uL (0.00-0.02) Anion Gap 5.0 mmol/L (3-11) Estimated GFR () > 150.0 Estimated GFR (Non- 133.5 BUN/Creatinine Ratio 23.8 (10-20) Calcium Level 8.5 mg/dl (8.5-10.1) Total Bilirubin 0.7 mg/dl (0.2-1) Aspartate Amino Transf (AST/SGOT) 13 U/L (15-37) Alanine Aminotransferase (ALT/SGPT) 21 U/L (12-78) Alkaline Phosphatase 65 U/L (45-117) Total Protein 6.7 gm/dl (6.4-8.2) Albumin 3.7 gm/dl (3.4-5.0) Globulin 3.0 gm/dl (2.5-4.0) Albumin/Globulin Ratio 1.2 (0.9-2) Thyroid Stimulating Hormone (TSH) 1.740 uIu/ml (0.300-4.500) Salicylates Level < 1.7 mg/dl (2.8-20) Acetaminophen Level < 2 ug/ml (10-30) Ethyl Alcohol mg/dL < 3.0 mg/dl (0-3) Erythrocyte Sedimentation Rate 2 mm/hr (0-14) C-Reactive Protein < 0.29 mg/dl (0-0.29) Urine Color YELLOW Urine Appearance CLEAR (CLEAR) Urine pH 6.5 (4.5-7.5) Urine Specific [place] 1.008 (1.000-1.030) Urine Protein NEG (NEG) Urine Glucose (UA) NEG (NEG) Urine Ketones NEG (NEG) Urine Occult Blood NEG (NEG) Urine Nitrite NEG (NEG) Urine Bilirubin NEG (NEG) Urine Urobilinogen NEG (NEG) Urine Leukocyte Esterase NEG (NEG) Urine Opiates Screen NEG (NEG) Urine Methadone, Qualitative NEG (NEG) Urine Barbiturates NEG (NEG) Urine Phencyclidine (PCP) Level NEG (NEG) Ur Amphetamine/Methamphetamine NEG (NEG) MDMA (Ecstasy) Screen NEG (NEG) Urine Benzodiazepines Screen POS (NEG) Urine Cocaine Metabolite NEG (NEG) Urine Marijuana (THC) POS (NEG) Medications Administered Medications (Trade) Dose Ordered Sig/Cleve Route Start Time Stop Time Status Last Admin Dose Admin Haloperidol Lactate (Haldol Inj) 5 mg NOW STAT IM 02/28/17 12:19 02/28/17 12:20 DC 02/28/17 13:16 5 MG Medical Decision Patient was seen and evaluated as above. He presents to us today supposedly for an overdose of Xanax. The patient's history was limited initially, and then afterward discussing more thoroughly with him he states that he is here because his dad dropped him off last night. He then starts discussing about how he is to be discharged tomorrow. He states that he was dropped off last night for evaluation of his back pain, and then went to a friend's house where he took a lot of Xanax, and then stayed in various rooms here in the hospital overnight. This is all per patient story. He was initially evaluated in room C5 and he went to the bathroom and was found coming out of the bathroom by the nurse pills in his hand. There was a bar and a half of suspected Xanax in his hand. It is on short this time how much she may have taken while here in the hospital. It is important note that he was searched and was provided the normal blue scrubs with belongings revoked upon his entrance suspected overdose. He's been here numerous times in the past but does deny to me any suicidal or homicidal ideations. He is very emotional in the room, at times will become very loud in his talking as well as crying. He states that he purchased Xanax and things from local connections from [facility], and notes that he was trying to sell him but was giving them away. I then spoke with the patient's mother and father who were here. I was able to obtain the complete and accurate story of which was not provided by the patient. Apparently the patient was diagnosed with a spinal cord compression here few days ago. He had some rheumatoid/autoimmune test done and he was found to be positive for HLA-B27 per his mother. She states that he followed up today with Dr. Chao, at the building in front of the hospital. It was during that visit that he requested to go to the bathroom and then he never returned. The mother states that she then received a phone call from her son from the hospital here in the ER. Apparently her son had left the [facility] and walked down to the hospital and was found wandering the halls here in the emergency department. It was identified that he was then brought to room C4 for evaluation. She also notes that he has a history of substance abuse and is to be on Suboxone as well as currently on prednisone for his spinal cord. She states that he has an appointment tomorrow with his neurologist and is also to see Dr. Chao on the . Around noon time, the patient seemed to become very agitated and I thought he was a harm to self secondary to his confused state which was verified after speaking with his mother, as well as his level of agitation. I then felt that chemical sedation was appropriate and discussed this with the attending physician. 5 mg of Haldol IM was provided to the patient. He then was called and was sleeping. He was checked on repeatedly as per protocol. I would check on him periodically and he was very groggy and notes that he does not remember taking the tablets earlier today. The case was discussed extensively with Dr. Wesley the attending physician who also personally evaluated the patient. The patient was also evaluated by the attending physician of whom the case was thoroughly discussed with. Around 4: 30 PM it was identified that a 302 should be petitioned secondary to the mental state that the patient is felt to pose to himself secondary to his mental status. This was signed by Dr. Wesley. The parents were thoroughly educated upon today's findings as they are the ones who provide for him. He lives with him. They're concerned about him. Benefits versus risk of 302 was discussed with him as well as the patient. It was apparent that there was also a bottle found underneath the bed of other Xanax tablets. This was verified by pharmacy but they do question if it is truly pharmaceutically manufactured Xanax. I received a call from pharmacy at 9 :15 PM. The tablet count with the network security consultant was 25+0.5+0.75 tablets. I did discuss the case with the medicine team for potential admission secondary to the patient being extremely groggy down here in the emergency department. I do not think that his current level sedation is from the 5 mg of Haldol given at noon edges been over 11 hours since that time. After discussing this with the attending physician Dr. Wagner, it was recommended to see if the patient could be admitted for further evaluation and management of his confusion and altered mental status. I suspect it could be quite some time until the patient clears the unknown medication ingested from his system. Pt. Mother called at 11:12 PM per request for update. She was informed that the patient will be admitted by the medicine team until he can be evaluated by the psychiatric team here. She informed that she will come to see the patient tomorrow morning. Pharmacy called at 11:30 PM. Called to inform they are to destroy suspected xanax tablets previously brought to them and found under bed of pt. Please refer to further documentation regarding the patient's stay. Impression Primary Impression: Overdose Additional Impressions: Polysubstance abuse Anemia Departure Information Dispostion Admitted as an inpatient Condition FAIR Referrals Antione Chao MD (PCP) Patient Instructions My [facility] Problem Qualifiers
[2017-02-28 11:37] LABS: BASO % 0.4 %; BASO ABS # 0.05 K/uL (0-0.2); COMPLETE YES; EOS % 2.8 %; HEMATOCRIT 39.9 % (42-52); IG% 0.1 %; LYMPH % 18.4 %; LYMPH ABS # 2.58 K/uL (1.2-3.4); MEAN CELL VOLUME 85.3 fL (80-100); MEAN CORPUSCULAR HEMOGLOBIN 29.3 pg (25-34); MEAN CORPUSCULAR HGB CONC 34.3 g/dl (32-36); MEAN PLATELET VOLUME 10.2 fL (7.4-10.4); MONO % 10.5 %; NEUT % 67.8 %; PLATELET COUNT 162 K/uL (130-400); RED BLOOD COUNT 4.68 M/uL (4.7-6.1); WHITE BLOOD COUNT 14.04 K/uL (4.8-10.8)
[2017-02-28 11:58] LABS: ALT/SGPT 21 U/L (12-78); BLOOD UREA NITROGEN 17 mg/dl (7-18); BUN/CREATININE RATIO 23.8 (10-20); CALCIUM 8.5 mg/dl (8.5-10.1); CARBON DIOXIDE 30 mmol/L (21-32); CHLORIDE 105 mmol/L (98-107); CREATININE 0.73 mg/dl (0.60-1.40); GLUCOSE 84 mg/dl (70-99); POTASSIUM 4.1 mmol/L (3.5-5.1); SODIUM 141 mmol/L (136-145)
[2017-02-28 12:08] LABS: ALB/GLOB RATIO 1.2 (0.9-2); ALKALINE PHOSPHATASE 65 U/L (45-117); AST/SGOT 13 U/L (15-37)
[2017-02-28 12:10] LABS: ACETAMINOPHEN < 2 ug/ml (10-30)
[2017-02-28] MEDS ORDERED: HALOPERIDOL LACTATE 5 MG/ML 1 ML VIAL IM STA (12:19)
--- NOTE | 2017-02-28 13:48 | EMERGENCY ROOM VISIT NOTE ---
ED Visit Note First contact with patient: 10:55 This Patient was discussed with the physician Chemical Equipment Repairer, Harmeet Travis PA-C. The pertinent historical and physical exam findings were confirmed. I agree with the studies ordered and with the interpretations of these studies. I agree with the disposition and care plan.
[2017-02-28 18:16] LABS: BENZODIAZEPINE, URINE POS (NEG); COCAINE,URINE NEG (NEG); PHENCYCLIDINE, URINE NEG (NEG)
[2017-02-28 18:48] LABS: MANUAL MICROSCOPIC REQUIRED? NO; REVIEW REQ? NO; URINE APPEARANCE CLEAR (CLEAR); URINE BILIRUBIN NEG (NEG); URINE COLOR YELLOW; URINE NITRITE NEG (NEG); URINE PH 6.5 (4.5-7.5); URINE SPECIFIC GRAVITY 1.008 (1.000-1.030); UROBILINOGEN NEG (NEG); ZZUR CULT IF INDIC CLEAN CATCH NO
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
[2017-02-28] MEDS ORDERED: ACETAMINOPHEN 325 MG TAB PO PRN (22:45)
[2017-02-28] MEDS ORDERED: ALUMINUM/MAGNESIUM/SIMETH (MAALOX MAX) 30 ML UDC PO PRN (22:45)
[2017-02-28] MEDS ORDERED: MAGNESIUM HYDROXIDE SUSP 30 ML UDC PO PRN (22:45)
[2017-02-28] MEDS ORDERED: POLYETHYLENE (MIRALAX) 17 GM PACK PO PRN (22:45)
[2017-02-28] MEDS ORDERED: HALOPERIDOL LACTATE 5 MG/ML 1 ML VIAL IM PRN (22:45)
[2017-02-28] MEDS ORDERED: ONDANSETRON INJ 2 MG/ML 2 ML VIAL IV PRN (22:45)
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
[2017-02-28] MEDS ORDERED: IV FLUIDS COMPLETED PRN (23:15)
[2017-02-28] MEDS ORDERED: DESTROY THIS MEDICATION STA (23:24)
[2017-02-28 23:35] VITALS: Ht 188 cm; Wt 94.0 kg
[2017-02-28 23:40] VITALS: O2SAT 97
[2017-02-28 23:59] VITALS: BP 90/43; PULSE 52; TEMP 36.5; O2SAT 96
--- NOTE | 2017-03-01 06:20 | Progress Note ---
Progress Note Date of Service Mar 01, 2017. Progress Note Saw patient around 5AM, with 2 RN's present as well. He was awake and alert and reporting persistent back pain. Earlier had yelled at RN about using suboxone only and refused Tylenol. He did not remember any events of yesterday. I informed him of his clinic appt and how he came to the ED, then was taking further pills from his pocket. He requested the pills back but I informed him they are with security. He reports he is not prescribed Xanax regularly and is buying them on his own. I did not inform him of the 302 petition signed. Informed him day team is coming and they will determine the next steps. Resident Tracking Resident Involvement: Manager Ecommerce Coverage Note Care Provided: Adult Hospital Medicine
[2017-03-01 07:33] VITALS: BP 106/63; PULSE 65; TEMP 36.4; O2SAT 98
--- NOTE | 2017-03-01 12:39 | Psychiatric Consultation ---
Consultation Date of Consultation Mar 01, 2017. Identifying Data Pablo Fuentes is a 21-year-old single white male from [place] who has a history of polysubstance abuse and a self-reported history of depression and anxiety who presented to the emergency room yesterday with altered mental status in the context of Xanax abuse. He is admitted medically, and we are consulted due to overdose. Chief Complaint "I was just looking out the window". History of Present Illness According to a review of records, the patient was recently admitted February 21 through the of this year for a workup of spinal cord edema. His drug screen was positive for benzodiazepines, cocaine, and cannabis, and he admitted to chronic severe substance abuse, including heroin, meth, cocaine, Xanax, and marijuana. He was seen by neurology, had MRIs of his brain and spine, and was diagnosed with functional back pain and the recommendations were to treat with an anti-inflammatory agent. He was discharged on a prednisone taper, naproxen when necessary, and Suboxone. He was to follow up with Dr. Dawkins (Neurology), Dr. Sanches (Pain Specialist), and Dr. Chao (PCP). He re-presented to the ER yesterday and reported that he had overdosed on Xanax. He admitted to abusing Xanax, up to 30 bars a week, and had taken some prior to coming to the ER. He denied thoughts of harming himself or anyone else, and said he had come to the hospital because he wanted to "hang out." His drug screen was positive for benzodiazepines and marijuana. He was a limited historian, and kept changing his story. He stated that his father had dropped him off at the hospital the night before and he had spent the night in various rooms throughout the hospital. He was found in the bathroom taking pills which were suspected to be Xanax. His parents presented to the emergency room, and stated that he had been at a follow-up appointment with his PCP, requested to go to the bathroom, and then never returned. He had apparently walked to the hospital, and was found wandering the halls. His parents stated he has a history of substance abuse. During his time in the emergency room, he became agitated, was confused , and received Haldol 5 mg IM. He was admitted to the hospitalist service. 302 petition was completed by emergency room staff, and stated that the patient was wandering in the ER, stumbling, confused, and disoriented. He admitted to taking 6-8 Xanax that he had ordered online, and was taking Xanax while in the emergency room as well. He was agitated and aggressive, threw a cup of water at staff and had to be chemically restrained. Although he was somnolent and sedated in the emergency room, he became more alert and was able to participate in his admission interview last evening. He is being treated with supportive measures for benzodiazepine overdose. This morning, he is asking to leave the hospital. He was poorly cooperative with the psychiatric liaison nurse's attempts to assess him, and refused to sign releases. Staff contacted his parents, who stated that they're concerned about his Xanax abuse, stating he has been to multiple inpatient rehabilitation programs in the past but always relapses shortly after getting out. They stated he is not welcome at their home because he has been verbally abusive to them. They stated that he made suicidal statements in November and talked about wanting to get a gun. On my assessment, the patient states that he doesn't recall how he got to the hospital , initially stating he walked here, then says he took an Uber. He cannot explain why he came to the emergency room, other than stating he wants someone to prescribe him Xanax. He states that he has a history of depression and anxiety, but has not been in treatment with a psychiatrist for an unclear amount of time. He admits to ongoing and severe substance abuse and refers to himself as an "addict," but does not want to consider substance abuse treatment as he wants to be released from the hospital to return to work. He denies symptoms of depression, judith, generalized anxiety, PTSD, and psychosis. He states his mood is "I'm doing really good right now," and denies SI and HI. He states that he had problems with depression in high school, but has been much better for the past couple of years, is working full time paramedic, and does not feel he needs psychiatric treatment. He changes his story at times, initially stating he needs an extra panic attacks, but then stating that he needs it for back pain. He admits that he frequently lies, and wants to know how soon he can be discharged. Past Psychiatric History Current OP Treatment: no current treatment Prior OP Treatment: psychiatrist (cannot recall the name of the last psychiatrist he saw or where it was) Prior Psych Hospitalizations: other ([facility] approximately 3 years ago, and [facility] in October 2016 for eating disorder) Access to a Gun: No Suicide Attempts: Yes (patient admits to a suicide attempt 5 years ago, but will not give further details.) Past Medication Trials Patient reports multiple past medication trials, but says he cannot recall the names of any of the medications. Additional Notes Per patient, he's been diagnosed with depression, anxiety, "all the eating disorders," and PTSD in the past. Past Medical/Surgical History (1) Benzodiazepine overdose (2) Polysubstance abuse PCP Dr. Chao, Neurologist Dr. Dawkins, Addiction treatment Dr. Gay (Suboxone ) Allergies Allergies: Coded Allergies: No Known Allergies (Unverified , 02/21/17) Home Medications Scheduled Buprenorphine Hcl-Naloxone Hcl (Suboxone 8-2 Mg), 4 EA SL BID Methylprednisolone (Medrol Dosepak), 1 PKT PO UD Naproxen (Naproxen), 1 TAB PO BID Family History Diabetes mellitus FH: heart disease FH: lung disease FH: seizures FHx: gallbladder disease Hypertension History of Suicide: Yes (patient claims a family member committed suicide, but cannot state what was) History of Substance Abuse: Yes ("my parents families have 2 or 3") Psychiatric History: Yes ("my parents and higher side of the family has it") Not a reliable historian Alcohol Use Alcohol Use In Past 12 Months: Yes (uncooperative with assessment) Smoking Use Smoking Status: Current Every Day Smoker Substance History Severe substance abuse history, with heavy Xanax use, which he obtains illegally. He reports a history of withdrawal seizures. Cocaine - last use about one week ago. Heroin - patient denies abusing heroin on my assessment, but per previous records admits to a history of IV heroin use. Meth - last use unknown. Cannabis - uses daily. Patient has been to multiple inpatient rehabs, and is not sure when the last one was. Personal History [place] Education: graduated from high school Relationship History: never Review of Systems 10 systems reviewed; negative except as stated above. Examination Vital Signs Vital Signs Past 12 Hours Date Time Temp Pulse Resp B/P (MAP) Pulse Ox O2 Delivery O2 Flow Rate FiO2 03/01/17 08:00 Room Air 03/01/17 07:33 36.4 65 18 106/63 (77) 98 Room Air 03/01/17 00:00 Room Air 02/28/17 23:59 36.5 52 18 90/43 (59) 96 Room Air Laboratory Results Last 24 Hours Test 02/28/17 12:26 02/28/17 17:43 Erythrocyte Sedimentation Rate 2 mm/hr C-Reactive Protein < 0.29 mg/dl Urine Color YELLOW Urine Appearance CLEAR Urine pH 6.5 Urine Specific [place] 1.008 Urine Protein NEG Urine Glucose (UA) NEG Urine Ketones NEG Urine Occult Blood NEG Urine Nitrite NEG Urine Bilirubin NEG Urine Urobilinogen NEG Urine Leukocyte Esterase NEG Urine Opiates Screen NEG Urine Methadone, Qualitative NEG Urine Barbiturates NEG Urine Phencyclidine (PCP) Level NEG Ur Amphetamine/Methamphetamine NEG MDMA (Ecstasy) Screen NEG Urine Benzodiazepines Screen POS Urine Cocaine Metabolite NEG Urine Marijuana (THC) POS Mental Examination During interview pt is: alert and oriented, other (partially cooperative, sometimes refusing to answer questions) Appearance: appropriately dressed, appropriately groomed, other (acne, nose ring) Eye contact is: fair Motor behavior is: steady gait & station, no abnormal motor movements Speech: normal in rate, rhythm & volume Affect: euthymic Mood is: other ("I'm fine") Thought process: goal directed Thought content: preoccupation (with getting Xanax) Suicidal thought are: denied Homicidal thoughts are: denied Hallucinations: denies auditory, denies visual Cognition: language grossly intact, other (memory impairment versus refusal to answer questions/dishonesty) Intelligence estimated to be: average Insight: impaired Judgement: impaired Impression / Recommendations Impression 21-year-old single white male from [place] who has a significant substance abuse history and a self-reported history of depression and anxiety and presented after overdosing on Xanax in the context of substance abuse. He was found wandering around the emergency room, after abruptly leaving a follow- up appointment as his PCPs office. He has consistently denied suicidal thoughts , symptoms of depression, judith, and psychosis, and does not meet criteria for involuntary psychiatric commitment. He is at increased risk for harm to himself due to his severe substance abuse, but as the risk is not directly related to a primary mental health condition, he does not meet criteria for involuntary commitment. Unfortunately in [place] there is no option for involuntarily commitment to substance abuse treatment. He is prescribed Suboxone by Dr. Gay at [facility], and I spoke with him to coordinate care given the safety concerns (mortality risk) with his severe and persistent substance abuse, specifically Xanax, combined with Suboxone. He stated the patient has been noncompliant with his treatment there and missed his last appointment. He is willing to continue to see him and he can follow up with him after discharge. Recommend records be sent to all of his current physicians so that they are aware of his substance abuse. Case also discussed with Dr. Mauro who is caring for him here in the hospital. Risk Factors Assessment Male: Yes : Yes /single/: Yes Higher / Fall in social status: No Access to guns: No Health problems: Yes Mental Health Diagnoses: No Substance use disorders: Yes Previous attempt: Yes Family history of suicide: Yes Previous psychiatric stay: Yes Hopelessness: No Smoker: No Protective Factors Assessment : No Responsible for young children: No Employed: Yes Stable relationships: No Supportive family: Yes Good rapport with provider: Yes Absence of risk factors above: Yes (Denying SI and HI, not psychotic or manic, doesn't meet criteria for a mood, anxiety, or psychotic disorder at this time. ) Recommendations (1) Polysubstance abuse - Would not recommend prescribing him controlled substances given the high risk of abuse, misuse, and drug-drug interactions. - Primary recommendation is for inpatient rehab, which he is refusing. - Care should be coordinated with all active outpatient physicians, with records sent to his PCP, neurologist, pain specialist, and addiction physician.
--- NOTE | 2017-03-01 14:58 | Discharge Instructions ---
Discharge Instructions Date of Service Mar 01, 2017. Admission Reason for Admission: Benzodiazepine Overdose Discharge Discharge Diagnosis / Problem: Polysubstance Abuse Discharge Goals Goal(s): Decrease discomfort, Improve function Activity Recommendations Activity Limitations: as noted below Lifting Limitations: gradually increase as tolerated Exercise/Sports Limitations: gradually increase as tolerated Shower/Bathe: no limitations . Instructions / Follow-Up Instructions / Follow-Up You were treated in the hospital for polysubstance abuse including the use of benzodiazepine. During your clinic visit yesterday you left the [facility] Medicine clinic and walked to the ED at [facility] where you were found wandering and then placed in the mental health unit. It was necessary to give you Haldol, a sedative, due to the fact you were agitated and combative. At this point in time you have improved medically and are alert and oriented after observation overnight. DO NOT USE ANY NON-PRESCRIBED MEDICATIONS OR DRUGS ON DISCHARGE. These can be very dangerous to your health and can potentially cause withdrawal or . IT IS STRONGLY RECOMMENDED THAT YOU ATTEND AN INPATIENT REHAB TREATMENT CENTER FOR YOUR DRUG USE. Medications: - Please resume all home medications Follow Up: - Appointment scheduled on Monday at 11:15am with Dr. Hernandez of Family Medicine [facility] Diet Patient's current hospital diet: Regular Diet Discharge Diet Recommended Diet: Regular Diet Pending Studies Studies pending at discharge: no Medical Emergencies . Who to Call and When: Medical Emergencies: If at any time you feel your situation is an emergency, please call 911 immediately. . Non-Emergent Contact Non-Emergency issues call your: Primary Care Provider . . "Provider Documentation" section prepared by Sean Mauro. . VTE Core Measure Inpt VTE Proph given/why not?: Treatment not indicated
[2017-03-01 16:09] VITALS: BP 107/63; PULSE 53; TEMP 36.5; O2SAT 100
--- NOTE | 2017-03-01 18:29 | Discharge Summary ---
Discharge Summary Date of Service Mar 01, 2017. (Sean Mauro MD) Discharge Summary Admission Date: Feb 28, 2017 at 22:50 Discharge Date: Mar 01, 2017 Discharge Disposition: Home Principal Diagnosis: Polysubstance abuse Problems/Secondary Diagnoses: (1) Polysubstance abuse Status: Chronic Immunizations: Have You Had Influenza Vaccine: Unknown History of Tetanus Vaccine?: Unknown History of Pneumococcal: Unknown History of Hepatitis B Vaccine: Unknown (Sean Mauro MD) Medication Reconciliation Continued Medications: Buprenorphine Hcl-Naloxone Hcl (Suboxone 8-2 Mg) 1 Mis Mis 4 EA SL BID HALF OF AN 8MG FILMSTRIP Methylprednisolone (Medrol Dosepak) 4 Mg Edward 1 PKT PO UD for 6 Days, #1 PKT Naproxen (Naproxen) 500 Mg Tab 1 TAB PO BID for 30 Days, #60 TAB 1 Refill Discharge Exam Review of Systems: Constitutional: No fever, No chills, No fatigue Respiratory: No cough, No shortness of breath Cardiovascular: No chest pain, No palpitations Abdomen: No pain, No nausea, No vomiting Musculoskeletal: No joint pain Neurologic: No paralysis, No weakness, No numbness/tingling Physical Exam: General Appearance: WD/WN, no apparent distress Eyes: normal inspection, sclerae normal Respiratory/Chest: chest non-tender, lungs clear, normal breath sounds, no respiratory distress, no accessory muscle use Cardiovascular: regular rate, rhythm, no edema, no gallop, no murmur Abdomen / GI: normal bowel sounds, non tender, soft Neurologic/Psychiatric: php developer II-XII nml as tested, no motor/sensory deficits , alert, normal mood/affect, normal reflexes, oriented x 3 (Sean Mauro MD) Hospital Course Patient is a 21 year old male that was seen at [facility] clinic yesterday evening with his Family Doctor Dr. Chao, and during his visit left the office and wandered into the ED at [facility]. There he was admitted to the psychiatric care unit and held for 6 hours. During this time he was combative and was found with pills he said he bought and that were not prescribed to him, believed to be Benzodiazepines. These were then confiscated and the patient became further agitated and required Haldol for sedation. The patient has been seen multiple times at [facility] and been to rehab multiple times despite repeated attempts to stay clean. The patient was admitted to the hospital and placed with a one to one overnight. This morning the patient was evaluated by Psychiatry this morning and states that he was not having any psychological distress including depression, anxiety, judith, suicidal ideations , homicidal ideations, and had no intention or plan to hurt himself or anyone else. He alert and oriented to person, place, and time. Based on evaluation with Psych and the inpatient team, it was clear he understood his actions and was clearly abusing prescription medications but was in no immediate danger to himself and had no medical reason to be held in the hospital against his will. The patient did not meet criteria for inpatient psychiatric evaluation and was discharged home after being medically cleared. Multiple discussions were had with the patient that he risked overdose and withdrawal from the drugs he was taking and urged him to participate again in outpatient rehabilitation. Total Time Spent: Greater than 30 minutes This includes examination of the patient, discharge planning, medication reconciliation, and communication with other providers. (Sean Mauro MD) I agree with resident assessment and plan and have seen and examined pt myself Resting comfortably in bed VSS Labs reviewed Pt denies suicidal/homicidal ideations Drug abuse hx Pt refuses OP f/u Parents updated No admissible criteria for inpatient psych Stable for DC home (Aba Escobedo, D.O.) Discharge Instructions Please refer to the electronic Patient Visit Report (Discharge Instructions) for additional information. (Sean Mauro MD) Additional Copies To Antione Chao MD
[2017-03-05 07:23] LABS: HYDROXYETHYLFLURAZEPAM CONF NEGATIVE NG/ML (CUTOFF=50); HYDROXYMIDAZOLAM NEGATIVE NG/ML (CUTOFF=50); HYDROXYTRIAZOLAM CONF NEGATIVE NG/ML (CUTOFF=50); TEMAZEPAM CONF NEGATIVE NG/ML (CUTOFF=50)
== END 2017-03-01 17:00 | disposition home or self-care (01) ==
LOC: C.EDB 10:50 → C.MS4W 22:50 → ENRESERV 23:17
PROVIDERS: ADMIT Internal Medicine; ATTEND Hospitalist
DX: F19.10 Other psychoactive substance abuse, uncomplicated (principal); F32.9 Major depressive disorder, single episode, unspecified; F41.9 Anxiety disorder, unspecified; F14.90 Cocaine use, unspecified, uncomplicated; F12.90 Cannabis use, unspecified, uncomplicated; Z83.3 Family history of diabetes mellitus; Z82.49 Family history of ischemic heart disease and other diseases of the circulatory system; Z82.0 Family history of epilepsy and other diseases of the nervous system

== ENCOUNTER 2017-06-02 19:22 | Emergency (ER) | payer BC, OTHER ==
[~2017-06-02] VITALS: Ht 188 cm; Wt 83.6 kg
[~2017-06-02 19:22] MED LIST changes: -METH4PAK PO
[2017-06-02 19:28] VITALS: TEMP 36.9; Ht 188 cm; Wt 83.6 kg
[2017-06-02] MEDS ORDERED: NAPR-1169 PO (20:31)
[2017-06-02] MEDS ORDERED: FIBER PO (20:31)
[2017-06-02] MEDS ORDERED: MULT-513 PO (20:31)
[2017-06-02] MEDS ORDERED: EMBREL SQ (20:34)
[2017-06-02 20:52] LABS: HEMATOCRIT 43.8 % (42-52); HEMOGLOBIN 15.1 g/dL (14.0-18.0); MEAN CELL VOLUME 86.7 fL (80-100); MEAN CORPUSCULAR HEMOGLOBIN 29.9 pg (25-34); MEAN CORPUSCULAR HGB CONC 34.5 g/dl (32-36); MEAN PLATELET VOLUME 10.5 fL (7.4-10.4); PLATELET COUNT 138 K/uL (130-400); RED CELL DISTRIBUTION WIDTH CV 13.5 % (11.5-14.5); RED CELL DISTRIBUTION WIDTH SD 42.4 fL (36.4-46.3); WHITE BLOOD COUNT 6.83 K/uL (4.8-10.8)
[2017-06-02 21:14] LABS: ALBUMIN 4.1 gm/dl (3.4-5.0); CREATININE 1.16 mg/dl (0.60-1.40); POTASSIUM 3.6 mmol/L (3.5-5.1)
[2017-06-02 21:25] LABS: TOTAL PROTEIN 7.3 gm/dl (6.4-8.2)
--- NOTE | 2017-06-02 22:53 | EMERGENCY ROOM VISIT NOTE ---
History Report prepared by José: Nadira Hargrove Under the Supervision of: Dr. Saul Goldstein M.D. First contact with patient: 19:33 Chief Complaint: MENTAL HEALTH EVALUATION Stated Complaint: SUICIDAL THOUGHTS History of Present Illness The patient is a 21 year old male who presents to the Emergency Room with complaints of persistent suicidal thoughts starting 3 days ago. The patient has been feeling depressed for the past 3 days after his girlfriend told him that she wanted to take a break from talking with him. They have a long distance relationship. He started feeling suicidal, leading him to start using Xanax and cocaine again. He is not prescribed Xanax. He last used the drugs last night. The patient tried jumping off of a 20 foot porch today. He did not do this because he thought of the people who care about him. He notes that this is not his first suicide attempt. He denies any fever, vomiting, or other physical complaints. He denies any alcohol use. The patient is currently prescribed Suboxone for a history of heroin abuse. He states he did not take the Suboxone while taking the Xanax. Source of History: patient Onset: 3 days ago Position: other (mental health) Quality: other (suicidal thoughts) Timing: other (persistent) Associated Symptoms: No fevers, No vomiting Note: Pt reports feeling depressed. Review of Systems See HPI for pertinent positives & negatives. A total of 10 systems reviewed and were otherwise negative. Past Medical & Surgical Medical Problems: (1) Anorexia (2) Benzodiazepine overdose (3) Depression (4) Polysubstance abuse Surgical Problems: (1) History of tonsillectomy and adenoidectomy (2) Status post repair of hydrocele Family History Diabetes mellitus FH: heart disease FH: lung disease FH: seizures FHx: gallbladder disease Hypertension Social History Smoking Status: Light Tobacco Smoker Alcohol Use: none Drug Use: cocaine, marijuana, other Occupation Status: employed Current/Historical Medications Scheduled Buprenorphine Hcl-Naloxone Hcl (Suboxone 8-2 Mg), 8 EA SL BID Fiber Laxative (Fiber Laxative), 1 TAB PO DAILY Multivitamins/Minerals (Mvi With Minerals), 1 TAB PO DAILY [Embrel], 1 DOSE SQ WK Scheduled PRN Naproxen (Naprosyn), 500 MG PO BID PRN for Pain Allergies Coded Allergies: No Known Allergies (Unverified , 02/21/17) Physical Exam Vital Signs Date Time Temp Pulse Resp B/P (MAP) Pulse Ox O2 Delivery O2 Flow Rate FiO2 06/02/17 21:15 75 18 110/56 100 Room Air 06/02/17 19:28 36.9 73 18 121/55 95 Room Air Physical Exam Constitutional: Vital signs reviewed. Eyes: Pupils are equal round reactive to light. Conjunctiva are noninjected. ENT: Pharynx is clear without erythema or exudate. Mucous membranes are moist. Neck supple without meningeal signs. Respiratory: Clear to auscultation bilaterally. Breath sounds are equal bilaterally. Cardiovascular: Regular rate and rhythm. No rubs or gallops. GI: Soft, nondistended and nontender. Bowel sounds are present. Musculoskeletal: No peripheral edema. No lacerations to the wrist. Integumentary: No cyanosis. Neurological: The patient is awake and alert. No focal deficits. Psychiatric: Tearful. Depressed affect. Medical Decision & Procedures Laboratory Results 06/02/17 20:16 06/02/17 20:16 Test 06/02/17 20:00 06/02/17 20:16 Urine Opiates Screen NEG (NEG) Urine Methadone, Qualitative NEG (NEG) Urine Barbiturates NEG (NEG) Urine Phencyclidine (PCP) Level NEG (NEG) Ur Amphetamine/Methamphetamine NEG (NEG) MDMA (Ecstasy) Screen NEG (NEG) Urine Benzodiazepines Screen POS (NEG) Urine Cocaine Metabolite POS (NEG) Urine Marijuana (THC) POS (NEG) Red Blood Count 5.05 M/uL (4.7-6.1) Mean Corpuscular Volume 86.7 fL (80-100) Mean Corpuscular Hemoglobin 29.9 pg (25-34) Mean Corpuscular Hemoglobin Concent 34.5 g/dl (32-36) RDW Standard Deviation 42.4 fL (36.4-46.3) RDW Coefficient of Variation 13.5 % (11.5-14.5) Mean Platelet Volume 10.5 fL (7.4-10.4) Anion Gap 4.0 mmol/L (3-11) Est Creatinine Clear Calc Drug Dose 118.2 ml/min Estimated GFR () 104.5 Estimated GFR (Non- 90.2 BUN/Creatinine Ratio 3.9 (10-20) Calcium Level 9.0 mg/dl (8.5-10.1) Total Bilirubin 1.7 mg/dl (0.2-1) Direct Bilirubin 0.3 mg/dl (0-0.2) Aspartate Amino Transf (AST/SGOT) 26 U/L (15-37) Alanine Aminotransferase (ALT/SGPT) 25 U/L (12-78) Alkaline Phosphatase 69 U/L (45-117) Total Protein 7.3 gm/dl (6.4-8.2) Albumin 4.1 gm/dl (3.4-5.0) Thyroid Stimulating Hormone (TSH) 0.674 uIu/ml (0.300-4.500) Salicylates Level < 1.7 mg/dl (2.8-20) Acetaminophen Level < 2 ug/ml (10-30) Ethyl Alcohol mg/dL < 3.0 mg/dl (0-3) Laboratory results as reviewed by me. ED Course 193: The patient was evaluated in room A6. A complete history and physical exam was performed. Medical Decision This is a 21-year-old male who presents for mental health evaluation. I did perform a limited focused review of portions of the patient's old chart on the electronic medical record. The patient was admitted in February after an overdose. He has a history of polysubstance abuse. I did evaluate the patient as noted above. The patient is presenting with depression and suicidal ideation. He recently had developed issues with his relationship and became depressed and suicidal and started using cocaine and Xanax. He was thinking about jumping off of a porch 20 feet up in the air and killing himself today. I did order and personally review the patient's urine drug screen as described above. I did order and review the patient's blood work as noted in the electronic medical record. The patient was medically cleared by myself. He is pending mental health evaluation and placement. He was signed out to Dr. davila. Medication Reconcilliation Current Medication List: was personally reviewed by me Blood Pressure Screening Patient's blood pressure: Normal blood pressure Blood pressure disposition: Did not require urgent referral Impression Primary Impression: Mood disorder Additional Impression: Suicidal intent Scribe Attestation The scribe's documentation has been prepared under my direct and personally reviewed by me in its entirety. I confirm that the note above accurately reflects all work, treatment, procedures, and medical decision making performed by me. Departure Information Dispostion Still a Patient Referrals Tristen Cassidy M.D. (PCP) Forms HOME CARE DOCUMENTATION FORM, IMPORTANT VISIT INFORMATION Patient Instructions My [facility] Problem Qualifiers
--- NOTE | 2017-06-03 00:20 | EMERGENCY ROOM VISIT NOTE ---
ED Visit Note First contact with patient: 00:20 Pt signed out to me by Dr. Goldstein. Patient seen and evaluated by psychiatric top case assembler. Voluntary form signed on the patient. Patient being transferred to [facility] [place].
[2017-06-03 00:48] VITALS: BP 105/68; PULSE 89; O2SAT 94
== END 2017-06-03 00:48 ==
LOC: C.EDB 19:25 → C.EDA 06-03 00:48
DX: F39 Unspecified mood [affective] disorder (principal); R45.851 Suicidal ideations; F32.9 Major depressive disorder, single episode, unspecified; F19.10 Other psychoactive substance abuse, uncomplicated; Z83.3 Family history of diabetes mellitus; Z82.49 Family history of ischemic heart disease and other diseases of the circulatory system; Z83.6 Family history of other diseases of the respiratory system; Z83.79 Family history of other diseases of the digestive system; F17.210 Nicotine dependence, cigarettes, uncomplicated; Z79.899 Other long term (current) drug therapy